=== PATIENT | female | born 1930 | race Caucasian/White ===

== ENCOUNTER → 2016-08-09 | Outpatient (CLI) | payer MEDICARE, OTHER ==
[~2016-08-09] MED LIST: /PANT40TA OR; ABIL2TAB2 PO; ALBUTEROL INHALER INH; AMLO10TA OR; AZEL0.1S3; DIPH25CA PO; FE G325T PO; HALO05TA PO; HYDR-4274 PO; LEVA500T OR; LISI40TA OR; METF500T4 OR; MULTCAP PO; PAXI40TA OR; PHEN1SUP6 PO; POTA20PW PO; RANI300C PO; ROBISYP3 OR; TRIA37.53 PO; VITA100072 PO; XANA0.5T PO
--- NOTE | 2016-08-09 11:50 | REP ---
LEFT KNEE SERIES: Five views of the left knee are performed. There is no acute fracture or dislocation. There is moderate medial joint space narrowing with subchondral sclerosis and vacuum, as well as mild spurring. There is mild patellofemoral compartment narrowing with subchondral sclerosis and spurring. There may be a small joint effusion. IMPRESSION: Moderate degenerative changes. No evidence of acute fracture or dislocation. Signed by Valente Guillaume MD 08/09/2016 12:46 P
== END ==
LOC: M SMT 11:00
PROVIDERS: ATTEND Family Medicine
DX: M17.12 Unilateral primary osteoarthritis, left knee (principal)

== ENCOUNTER → 2016-10-09 | Outpatient (CLI) | payer MEDICARE, OTHER ==
[2016-10-09 08:54] LABS: ANION GAP 6 MEQ/L (8-16); BLOOD UREA NITROGEN 13 MG/DL (7-18); CARBON DIOXIDE LEVEL 32 MEQ/L (21-32); CHLORIDE LEVEL 103 MEQ/L (98-107); CREATININE FOR GFR 0.56 MG/DL (0.55-1.02); GLOMERULAR FILTRATION RATE > 60.0 (>32); GLUCOSE, FASTING 100 MG/DL (83-110); SODIUM LEVEL 141 MEQ/L (136-145)
== END ==
LOC: M LAB 07:28
PROVIDERS: ATTEND Physician Assistant
DX: R60.9 Edema, unspecified (principal); E11.9 Type 2 diabetes mellitus without complications

== ENCOUNTER → 2016-12-14 | Outpatient (REF) | payer MEDICARE, OTHER ==
[~2016-12-14] MED LIST changes: +KLOR20PO12 PO; -POTA20PW PO
== END ==
LOC: M LAB REF 14:45
PROVIDERS: ATTEND Physician Assistant
DX: N39.0 Urinary tract infection, site not specified (principal)

== ENCOUNTER → 2017-01-02 | Outpatient (CLI) | payer MEDICARE, OTHER ==
[2017-01-02 09:13] LABS: ANION GAP 5 MEQ/L (8-16); AST/SGOT 19 U/L (15-37); BLOOD UREA NITROGEN 12 MG/DL (7-18); CALCIUM LEVEL 8.8 MG/DL (8.8-10.2); CARBON DIOXIDE LEVEL 31 MEQ/L (21-32); CHLORIDE LEVEL 105 MEQ/L (98-107); CREATININE FOR GFR 0.55 MG/DL (0.55-1.02); GLOMERULAR FILTRATION RATE > 60.0 (>32); GLUCOSE, FASTING 94 MG/DL (83-110); POTASSIUM SERUM 4.2 MEQ/L (3.5-5.1); SODIUM LEVEL 141 MEQ/L (136-145)
[2017-01-02 09:14] LABS: ALBUMIN 3.7 GM/DL (3.2-5.2); ALBUMIN/GLOBULIN RATIO 1.06 (1.00-1.93); ALKALINE PHOSPHATASE 114 U/L (45-117); ALT/SGPT 23 U/L (12-78); BILIRUBIN,TOTAL 0.3 MG/DL (0.2-1.0); CHOLESTEROL LEVEL 222 MG/DL (<200); TOTAL PROTEIN 7.2 GM/DL (6.4-8.2); TRIGLYCERIDES LEVEL 248 MG/DL (<150)
== END ==
LOC: M LAB 08:02
PROVIDERS: ATTEND Family Medicine
DX: E11.42 Type 2 diabetes mellitus with diabetic polyneuropathy (principal); F33.1 Major depressive disorder, recurrent, moderate

== ENCOUNTER → 2017-04-04 | Outpatient (CLI) | payer MEDICARE, OTHER ==
[~2017-04-04] MED LIST changes: +ABIL1TAB13 PO; -ABIL2TAB2 PO; +HALO0.5H PO; -HALO05TA PO; -HYDR-4274 PO; +HYDR50TA70 PO
[2017-04-04 09:24] LABS: BASO # 0.1 K/mm3 (0.0-0.2); BASO % 1.2 % (0.0-1.0); EOS # 0.2 K/mm3 (0.0-0.50); EOS % 2.9 % (0.0-3.0); LARGE UNSTAINED CELL # 0.3 K/mm3 (0.0-0.4); LARGE UNSTAINED CELL % 4.6 % (0.0-4.0); LYMPH # 2.1 K/mm3 (1.5-4.5); LYMPH % 28.4 % (24.0-44.0); MEAN CORPUSCULAR HEMOGLOBIN 28.2 pg (27.0-33.0); MEAN CORPUSCULAR HGB CONC 32.6 g/dl (32.0-36.5); MEAN CORPUSCULAR VOLUME 86.3 fl (80.0-96.0); MONO # 0.5 K/mm3 (0.0-0.8); MONO % 6.7 % (0.0-5.0); NEUTROPHILS # 4.1 K/mm3 (1.8-7.7); NEUTROPHILS % 56.2 % (36.0-66.0); PLATELET COUNT, AUTOMATED 298 k/mm3 (150-450); RED CELL DISTRIBUTION WIDTH 12.7 % (11.5-14.5); WHITE BLOOD COUNT 7.3 K/mm3 (4.0-10.0)
== END ==
LOC: M LAB 08:14
PROVIDERS: ATTEND Family Medicine
DX: E78.2 Mixed hyperlipidemia (principal); E11.42 Type 2 diabetes mellitus with diabetic polyneuropathy

== ENCOUNTER → 2017-04-30 | Outpatient (REF) | payer MEDICARE, OTHER ==
[2017-04-30 18:46] LABS: CALCIUM OXALATE CRYSTALS SMALL
== END ==
LOC: M LAB REF 16:34
PROVIDERS: ATTEND Nurse Practitioner Women's Health
DX: N39.0 Urinary tract infection, site not specified (principal)

== ENCOUNTER → 2017-07-01 | Outpatient (CLI) | payer MEDICARE, OTHER ==
[2017-07-01 08:53] LABS: ALBUMIN 3.8 GM/DL (3.2-5.2); ALBUMIN/GLOBULIN RATIO 1.06 (1.00-1.93); ALKALINE PHOSPHATASE 109 U/L (45-117); ALT/SGPT 20 U/L (12-78); ANION GAP 8 MEQ/L (8-16); AST/SGOT 14 U/L (7-37); BILIRUBIN,TOTAL 0.3 MG/DL (0.2-1.0); BLOOD UREA NITROGEN 23 MG/DL (7-18); CARBON DIOXIDE LEVEL 29 MEQ/L (21-32); CHLORIDE LEVEL 105 MEQ/L (98-107); CREATININE FOR GFR 0.65 MG/DL (0.55-1.02); FREE T4 0.88 NG/DL (0.76-1.46); GLOMERULAR FILTRATION RATE > 60.0 (>32); GLUCOSE, FASTING 105 MG/DL (83-110); POTASSIUM SERUM 4.1 MEQ/L (3.5-5.1); SODIUM LEVEL 142 MEQ/L (136-145); TOTAL PROTEIN 7.4 GM/DL (6.4-8.2)
== END ==
LOC: M LAB 08:01
PROVIDERS: ATTEND Physician Assistant
DX: E11.42 Type 2 diabetes mellitus with diabetic polyneuropathy (principal); F41.1 Generalized anxiety disorder

== ENCOUNTER → 2017-08-22 | Outpatient (CLI) | payer MEDICARE, OTHER | LOC: M RAD 13:01 | DX: E04.1 Nontoxic single thyroid nodule (principal) | CPT/HCPCS: A9516 ==

== ENCOUNTER → 2018-01-29 | Outpatient (REF) | payer MEDICARE, OTHER ==
[2018-01-29 20:11] LABS: APPEARANCE, URINE CLOUDY (CLEAR); BILIRUBIN, URINE AUTO NEGATIVE (NEGATIVE); BLOOD, URINE BLOOD NEGATIVE (NEGATIVE); COLOR, URINE YELLOW (YELLOW); GLUCOSE, URINE (UA) AUTO NEGATIVE (NEGATIVE); KETONE, URINE AUTO NEGATIVE (NEGATIVE); LEUKOCYTE ESTERASE, URINE AUTO 2+ (NEGATIVE); NITRITE, URINE AUTO NEGATIVE (NEGATIVE); PROTEIN, URINE AUTO NEGATIVE (NEGATIVE); RBC, URINE AUTO 2 /HPF (0-3); SPECIFIC GRAVITY URINE AUTO 1.011 (1.002-1.035); SQUAMOUS EPITHELIAL CELL UR AU 1 /HPF (0-6); TRANSITIONAL EPITHELIAL AUTO <1 /HPF; UROBILINOGEN, URINE AUTO 0.2 mg/dL (0.0-2.0); WBC, URINE AUTO 14 /HPF (0-3)
[2018-01-29 20:12] LABS: BACTERIA, URINE AUTO 2+ (NEGATIVE)
== END ==
LOC: M LAB REF 17:22
DX: N39.0 Urinary tract infection, site not specified (principal)
CPT/HCPCS: 81001

== ENCOUNTER → 2018-02-05 | Outpatient (CLI) | payer MEDICARE, OTHER ==
[2018-02-05 08:35] LABS: ANION GAP 8 MEQ/L (8-16); BLOOD UREA NITROGEN 19 MG/DL (7-18); CALCIUM LEVEL 9.1 MG/DL (8.8-10.2); CARBON DIOXIDE LEVEL 28 MEQ/L (21-32); CHLORIDE LEVEL 106 MEQ/L (98-107); CHOLESTEROL LEVEL 268 MG/DL (<200); CHOLESTEROL RISK RATIO 3.435 (<5); GLOMERULAR FILTRATION RATE > 60.0 (>32); GLUCOSE, FASTING 92 MG/DL (70-100); HDL CHOLESTEROL 78 MG/DL (>40); LDL CHOLESTEROL 144.4 MG/DL (<100); NON-HDL-C 190 MG/DL; POTASSIUM SERUM 4.3 MEQ/L (3.5-5.1); SODIUM LEVEL 142 MEQ/L (136-145); TRIGLYCERIDES LEVEL 228 MG/DL (<150)
[2018-02-05 09:09] LABS: ESTIMATED AVERAGE GLUCOSE 117 MG/DL (60-110); HEMOGLOBIN A1c 5.7 %
== END ==
LOC: M LAB 07:29
DX: E11.42 Type 2 diabetes mellitus with diabetic polyneuropathy (principal); I10 Essential (primary) hypertension
CPT/HCPCS: 83036

== ENCOUNTER → 2018-02-11 | Outpatient (CLI) | payer MEDICARE, OTHER ==
[2018-02-11 12:38] LABS: BASO # 0.1 10^3/uL (0.0-0.2); BASO % 1.3 % (0.0-1.0); EOS # 0.3 10^3/uL (0.0-0.50); EOS % 4.2 % (0.0-3.0); HEMATOCRIT 39.3 % (36.0-47.0); HEMOGLOBIN 12.4 g/dl (12.0-15.5); IMMATURE GRANULOCYTE % 0.5 % (0-3.0); LYMPH # 2.4 10^3/uL (1.5-4.5); LYMPH % 30.7 % (24.0-44.0); MEAN CORPUSCULAR HEMOGLOBIN 28.2 pg (27.0-33.0); MEAN CORPUSCULAR HGB CONC 31.6 g/dl (32.0-36.5); MEAN CORPUSCULAR VOLUME 89.3 fl (80.0-96.0); MONO # 0.8 10^3/uL (0.0-0.8); MONO % 10.4 % (0.0-5.0); NEUTROPHILS # 4.1 10^3/uL (1.8-7.7); NEUTROPHILS % 52.9 % (36.0-66.0); PLATELET COUNT, AUTOMATED 266 10^3/uL (150-450); RED CELL DISTRIBUTION WIDTH 13.1 % (11.5-14.5); WHITE BLOOD COUNT 7.7 10^3/uL (4.0-10.0)
== END ==
LOC: M LAB 12:00
DX: R21 Rash and other nonspecific skin eruption (principal)
CPT/HCPCS: 85025

== ENCOUNTER → 2018-03-13 | Outpatient (REF) | payer MEDICARE, OTHER ==
[2018-03-13 17:19] LABS: APPEARANCE, URINE CLOUDY (CLEAR); BACTERIA, URINE AUTO 1+ (NEGATIVE); BILIRUBIN, URINE AUTO NEGATIVE (NEGATIVE); BLOOD, URINE BLOOD NEGATIVE (NEGATIVE); CALCIUM OXALATE CRYSTALS MODERATE; COLOR, URINE YELLOW (YELLOW); GLUCOSE, URINE (UA) AUTO NEGATIVE (NEGATIVE); KETONE, URINE AUTO NEGATIVE (NEGATIVE); LEUKOCYTE ESTERASE, URINE AUTO 1+ (NEGATIVE); NITRITE, URINE AUTO NEGATIVE (NEGATIVE); PROTEIN, URINE AUTO NEGATIVE (NEGATIVE); RBC, URINE AUTO 1 /HPF (0-3); SPECIFIC GRAVITY URINE AUTO 1.011 (1.002-1.035); SQUAMOUS EPITHELIAL CELL UR AU 7 /HPF (0-6); UROBILINOGEN, URINE AUTO 0.2 mg/dL (0.0-2.0); WBC, URINE AUTO 9 /HPF (0-3)
== END ==
LOC: M LAB REF 16:55
DX: R33.9 Retention of urine, unspecified (principal)
CPT/HCPCS: 81001

== ENCOUNTER 2018-04-29 10:10 | Day surgery (SDC) | payer MEDICARE, OTHER ==
[2018-04-29] MEDS: NS 1,000 ML IV (06:00)
[2018-04-29] MEDS ORDERED: LABETALOL HCL 100 MG/20 ML VIAL As Ordered (12:27)
[2018-04-29] MEDS ORDERED: PROPOFOL 200 MG/20 ML VIAL As Ordered ×2 (12:28→12:30)
[2018-04-29] MEDS ORDERED: LIDOCAINE 2% INJ 100 MG/5 ML SDV (FOR ANES.) As Ordered (12:28)
== END 2018-04-29 14:08 | disposition home or self-care (01) ==
LOC: M OPP 10:10
DX: R19.4 Change in bowel habit (principal); K59.00 Constipation, unspecified; K57.30 Diverticulosis of large intestine without perforation or abscess without bleeding; R93.3 Abnormal findings on diagnostic imaging of other parts of digestive tract; R13.12 Dysphagia, oropharyngeal phase; R07.89 Other chest pain; I10 Essential (primary) hypertension; E11.9 Type 2 diabetes mellitus without complications; K58.9 Irritable bowel syndrome, unspecified; K21.9 Gastro-esophageal reflux disease without esophagitis; R12 Heartburn; D64.9 Anemia, unspecified; R06.02 Shortness of breath; M19.90 Unspecified osteoarthritis, unspecified site; F41.9 Anxiety disorder, unspecified; Z78.0 Asymptomatic menopausal state; J45.909 Unspecified asthma, uncomplicated; G47.8 Other sleep disorders; R06.83 Snoring; Z88.1 Allergy status to other antibiotic agents; Z88.8 Allergy status to other drugs, medicaments and biological substances; Z79.82 Long term (current) use of aspirin; Z79.899 Other long term (current) drug therapy; Z79.84 Long term (current) use of oral hypoglycemic drugs; Z80.3 Family history of malignant neoplasm of breast; Z80.0 Family history of malignant neoplasm of digestive organs
CPT/HCPCS: 45378

== ENCOUNTER → 2018-05-01 | Outpatient (CLI) | payer MEDICARE, OTHER ==
[2018-05-01 17:22] LABS: BASO # 0.1 10^3/uL (0.0-0.2); BASO % 1.2 % (0.0-1.0); EOS # 0.3 10^3/uL (0.0-0.50); EOS % 3.3 % (0.0-3.0); HEMOGLOBIN 13.3 g/dl (12.0-15.5); IMMATURE GRANULOCYTE % 0.2 % (0-3.0); LYMPH % 33.1 % (24.0-44.0); MEAN CORPUSCULAR HEMOGLOBIN 27.7 pg (27.0-33.0); MEAN CORPUSCULAR HGB CONC 31.7 g/dl (32.0-36.5); MEAN CORPUSCULAR VOLUME 87.5 fl (80.0-96.0); MONO # 0.8 10^3/uL (0.0-0.8); NEUTROPHILS # 4.8 10^3/uL (1.8-7.7); NEUTROPHILS % 53.2 % (36.0-66.0); PLATELET COUNT, AUTOMATED 290 10^3/uL (150-450); RED CELL DISTRIBUTION WIDTH 13.2 % (11.5-14.5)
[2018-05-01 17:41] LABS: ALBUMIN 3.7 GM/DL (3.2-5.2); ALBUMIN/GLOBULIN RATIO 1.03 (1.00-1.93); ALKALINE PHOSPHATASE 123 U/L (45-117); ALT/SGPT 26 U/L (12-78); ANION GAP 6 MEQ/L (8-16); AST/SGOT 22 U/L (7-37); BILIRUBIN,TOTAL 0.2 MG/DL (0.2-1.0); BLOOD UREA NITROGEN 12 MG/DL (7-18); C REACTIVE PROTEIN QUANTITATIV 0.52 MG/DL (0.00-0.30); CALCIUM LEVEL 8.7 MG/DL (8.8-10.2); CARBON DIOXIDE LEVEL 31 MEQ/L (21-32); CHLORIDE LEVEL 106 MEQ/L (98-107); FREE T4 0.93 NG/DL (0.76-1.46); GLOMERULAR FILTRATION RATE > 60.0 (>32); GLUCOSE, FASTING 89 MG/DL (70-100); MAGNESIUM LEVEL 1.9 MG/DL (1.8-2.4); POTASSIUM SERUM 4.4 MEQ/L (3.5-5.1); SODIUM LEVEL 143 MEQ/L (136-145); THYROID STIMULATING HORMONE 0.629 uIU/ML (0.358-3.740); TOTAL PROTEIN 7.3 GM/DL (6.4-8.2)
[2018-05-01 17:57] LABS: ERYTHROCYTE SEDIMENTATION RATE 8 mm/hr (0-42)
[2018-05-01 20:24] LABS: FOLATE 23.7 NG/ML
== END ==
LOC: M SMT 14:37
DX: G44.52 New daily persistent headache (NDPH) (principal); I10 Essential (primary) hypertension; E11.9 Type 2 diabetes mellitus without complications; D64.9 Anemia, unspecified; E78.00 Pure hypercholesterolemia, unspecified; K21.9 Gastro-esophageal reflux disease without esophagitis
CPT/HCPCS: 82746

== ENCOUNTER → 2018-05-16 | Outpatient (CLI) | payer MEDICARE, OTHER ==
[2018-05-16 10:11] LABS: ALBUMIN 3.8 GM/DL (3.2-5.2); ALBUMIN/GLOBULIN RATIO 1.19 (1.00-1.93); ALKALINE PHOSPHATASE 113 U/L (45-117); ALT/SGPT 17 U/L (12-78); ANION GAP 4 MEQ/L (8-16); AST/SGOT 12 U/L (7-37); BILIRUBIN,TOTAL 0.4 MG/DL (0.2-1.0); BLOOD UREA NITROGEN 15 MG/DL (7-18); CALCIUM LEVEL 9.5 MG/DL (8.8-10.2); CARBON DIOXIDE LEVEL 32 MEQ/L (21-32); CHLORIDE LEVEL 104 MEQ/L (98-107); CHOLESTEROL LEVEL 266 MG/DL (<200); CHOLESTEROL RISK RATIO 3.694 (<5); FREE T4 0.86 NG/DL (0.76-1.46); GLOMERULAR FILTRATION RATE > 60.0 (>32); GLUCOSE, FASTING 85 MG/DL (70-100); HDL CHOLESTEROL 72 MG/DL (>40); LDL CHOLESTEROL 165 MG/DL (<100); NON-HDL-C 194 MG/DL; POTASSIUM SERUM 5.1 MEQ/L (3.5-5.1); SODIUM LEVEL 140 MEQ/L (136-145); TRIGLYCERIDES LEVEL 145 MG/DL (<150)
[2018-05-16 11:32] LABS: ESTIMATED AVERAGE GLUCOSE 126 MG/DL (60-110)
== END ==
LOC: M LAB 07:35
DX: I10 Essential (primary) hypertension (principal); E11.42 Type 2 diabetes mellitus with diabetic polyneuropathy; F41.1 Generalized anxiety disorder
CPT/HCPCS: 84443

== ENCOUNTER → 2018-06-24 | Outpatient (REF) | payer MEDICARE, OTHER ==
[2018-06-24 18:47] LABS: APPEARANCE, URINE CLOUDY (CLEAR); BACTERIA, URINE AUTO 3+ (NEGATIVE); BILIRUBIN, URINE AUTO NEGATIVE (NEGATIVE); BLOOD, URINE BLOOD 1+ (NEGATIVE); COLOR, URINE YELLOW (YELLOW); GLUCOSE, URINE (UA) AUTO NEGATIVE (NEGATIVE); KETONE, URINE AUTO NEGATIVE (NEGATIVE); LEUKOCYTE ESTERASE, URINE AUTO 3+ (NEGATIVE); NITRITE, URINE AUTO POSITIVE (NEGATIVE); PROTEIN, URINE AUTO NEGATIVE (NEGATIVE); RBC, URINE AUTO 13 /HPF (0-3); SPECIFIC GRAVITY URINE AUTO 1.005 (1.002-1.035); SQUAMOUS EPITHELIAL CELL UR AU 8 /HPF (0-6); UROBILINOGEN, URINE AUTO 0.2 mg/dL (0.0-2.0); WBC, URINE AUTO 140 /HPF (0-3)
== END ==
LOC: M LAB REF 16:27
DX: N39.0 Urinary tract infection, site not specified (principal)
CPT/HCPCS: 81001

== ENCOUNTER → 2018-07-31 | Outpatient (REF) | payer MEDICARE, OTHER ==
[~2018-07-31] MED LIST changes: +AMLO5TAB6 PO; +ASPI1TAB PO; +CBD oil PO; +DOXE10CA PO; +GABA-845 PO; +HYDR-3363 PO; +LINZ145C PO; +LORA-243 PO; +LORA1TAB12 PO; +LOSA25TA14 PO; +METF500T13 PO; +MILK120011 PO; +OXYC-517 PO; +PARO40TA2 PO; +VITA500T PO; +medical marijuana PO
== END ==
LOC: M LAB REF 15:06
PROVIDERS: ATTEND Nurse Practitioner Family
DX: L08.9 Local infection of the skin and subcutaneous tissue, unspecified (principal)

== ENCOUNTER → 2018-09-04 | Outpatient (CLI) | payer MEDICARE, OTHER ==
[2018-09-04 09:01] LABS: BASO # 0.1 10^3/uL (0.0-0.2); EOS # 0.3 10^3/uL (0.0-0.50); EOS % 2.5 % (0.0-3.0); HEMATOCRIT 43.2 % (36.0-47.0); HEMOGLOBIN 13.7 g/dl (12.0-15.5); LYMPH % 17.9 % (24.0-44.0); MEAN CORPUSCULAR HEMOGLOBIN 27.2 pg (27.0-33.0); MEAN CORPUSCULAR HGB CONC 31.7 g/dl (32.0-36.5); MEAN CORPUSCULAR VOLUME 85.7 fl (80.0-96.0); MONO # 0.7 10^3/uL (0.0-0.8); MONO % 6.1 % (0.0-5.0); NEUTROPHILS # 7.9 10^3/uL (1.8-7.7); PLATELET COUNT, AUTOMATED 355 10^3/uL (150-450); RED BLOOD COUNT 5.04 10^6/uL (4.00-5.40); WHITE BLOOD COUNT 10.9 10^3/uL (4.0-10.0)
[2018-09-04 09:12] LABS: ALT/SGPT 24 U/L (12-78); BILIRUBIN,TOTAL 0.3 MG/DL (0.2-1.0); BLOOD UREA NITROGEN 13 MG/DL (7-18); CALCIUM LEVEL 9.3 MG/DL (8.8-10.2); CARBON DIOXIDE LEVEL 30 MEQ/L (21-32); CHLORIDE LEVEL 105 MEQ/L (98-107); CHOLESTEROL LEVEL 213 MG/DL (<200); CREATININE FOR GFR 0.58 MG/DL (0.55-1.30); GLOMERULAR FILTRATION RATE > 60.0 (>32); GLUCOSE, FASTING 115 MG/DL (70-100); HDL CHOLESTEROL 91 MG/DL (>40); LDL CHOLESTEROL 94 MG/DL (<100); NON-HDL-C 122 MG/DL; SODIUM LEVEL 141 MEQ/L (136-145); TOTAL PROTEIN 7.4 GM/DL (6.4-8.2); TRIGLYCERIDES LEVEL 138 MG/DL (<150)
[2018-09-04 10:45] LABS: HEMOGLOBIN A1c 6.5 %
== END ==
LOC: M LAB 08:16
PROVIDERS: ATTEND Family Medicine
DX: E78.2 Mixed hyperlipidemia (principal); E11.42 Type 2 diabetes mellitus with diabetic polyneuropathy; I10 Essential (primary) hypertension

== ENCOUNTER → 2018-09-18 | Outpatient (REF) | payer MEDICARE, OTHER ==
[~2018-09-18] MED LIST changes: -/PANT40TA OR; -ASPI1TAB PO; +ASPI81TA26 PO; +PROT1TAB2 OR; +VITA100018 PO; -VITA100072 PO
== END ==
LOC: M SFHCPLAZ 09:51
PROVIDERS: ATTEND Dermatology
DX: L57.8 Other skin changes due to chronic exposure to nonionizing radiation (principal)

== ENCOUNTER → 2018-10-09 | Outpatient (REF) | payer MEDICARE, OTHER ==
[~2018-10-09] MED LIST changes: +/PANT40TA OR; +ASPI1TAB PO; -ASPI81TA26 PO; -PROT1TAB2 OR; -VITA100018 PO; +VITA100072 PO
== END ==
LOC: M LAB REF 17:02
PROVIDERS: ATTEND Physician Assistant
DX: N39.0 Urinary tract infection, site not specified (principal)

== ENCOUNTER → 2019-02-04 | Outpatient (REF) | payer MEDICARE, OTHER ==
[~2019-02-04] MED LIST changes: -/PANT40TA OR; -ASPI1TAB PO; +ASPI81TA26 PO; +PROT1TAB2 OR; +VITA100018 PO; -VITA100072 PO
[2019-02-04 19:01] LABS: APPEARANCE, URINE HAZY (CLEAR); BACTERIA, URINE AUTO 2+ (NEGATIVE); BILIRUBIN, URINE AUTO NEGATIVE (NEGATIVE); BLOOD, URINE BLOOD NEGATIVE (NEGATIVE); COLOR, URINE YELLOW (YELLOW); GLUCOSE, URINE (UA) AUTO NEGATIVE (NEGATIVE); KETONE, URINE AUTO NEGATIVE (NEGATIVE); LEUKOCYTE ESTERASE, URINE AUTO 3+ (NEGATIVE); NITRITE, URINE AUTO POSITIVE (NEGATIVE); PROTEIN, URINE AUTO NEGATIVE (NEGATIVE); RBC, URINE AUTO 3 /HPF (0-3); SQUAMOUS EPITHELIAL CELL UR AU 1 /HPF (0-6); UROBILINOGEN, URINE AUTO 0.2 mg/dL (0.0-2.0); WBC, URINE AUTO 58 /HPF (0-3)
== END ==
LOC: M LAB REF 16:40
PROVIDERS: ATTEND Obstetrics & Gynecology
DX: N39.0 Urinary tract infection, site not specified (principal)

== ENCOUNTER → 2019-03-11 | Outpatient (CLI) | payer MEDICARE, OTHER ==
[~2019-03-11] MED LIST changes: -DIPH25CA PO; +DIPH25CA32 PO
[2019-03-11 08:11] LABS: BASO # 0.1 10^3/uL (0.0-0.2); BASO % 1.2 % (0.0-1.0); EOS # 0.3 10^3/uL (0.0-0.50); EOS % 3.4 % (0.0-3.0); HEMOGLOBIN 13.7 g/dl (12.0-15.5); LYMPH # 2.4 10^3/uL (1.5-4.5); LYMPH % 29.2 % (24.0-44.0); MEAN CORPUSCULAR HGB CONC 31.9 g/dl (32.0-36.5); MEAN CORPUSCULAR VOLUME 87.8 fl (80.0-96.0); MONO # 0.7 10^3/uL (0.0-0.8); MONO % 8.3 % (0.0-5.0); NEUTROPHILS # 4.7 10^3/uL (1.8-7.7); NEUTROPHILS % 57.5 % (36.0-66.0); PLATELET COUNT, AUTOMATED 287 10^3/uL (150-450); WHITE BLOOD COUNT 8.2 10^3/uL (4.0-10.0)
[2019-03-11 08:37] LABS: HEMOGLOBIN A1c 6.3 %
[2019-03-11 08:42] LABS: ALBUMIN 3.7 GM/DL (3.2-5.2); ALT/SGPT 23 U/L (12-78); BILIRUBIN,TOTAL 0.2 MG/DL (0.2-1.0); BLOOD UREA NITROGEN 11 MG/DL (7-18); CALCIUM LEVEL 9.6 MG/DL (8.8-10.2); CARBON DIOXIDE LEVEL 30 MEQ/L (21-32); CHLORIDE LEVEL 106 MEQ/L (98-107); CHOLESTEROL LEVEL 238 MG/DL (<200); CHOLESTEROL RISK RATIO 3.131 (<5); CREATININE FOR GFR 0.53 MG/DL (0.55-1.30); GLOMERULAR FILTRATION RATE > 60.0 (>32); GLUCOSE, FASTING 103 MG/DL (70-100); HDL CHOLESTEROL 76 MG/DL (>40); LDL CHOLESTEROL 121 MG/DL (<100); NON-HDL-C 162 MG/DL; POTASSIUM SERUM 4.1 MEQ/L (3.5-5.1); SODIUM LEVEL 142 MEQ/L (136-145); TOTAL PROTEIN 7.1 GM/DL (6.4-8.2); TRIGLYCERIDES LEVEL 205 MG/DL (<150)
[2019-03-11 08:50] LABS: CREATININE, URINE 63.8 MG/DL; MALB URINE SIEMENS 37.1 MG/L; MAU/CREAT RATIO 58.1 MCG/MG (0.0-30.0)
== END ==
LOC: M LAB 07:40
PROVIDERS: ATTEND Family Medicine
DX: E11.42 Type 2 diabetes mellitus with diabetic polyneuropathy (principal); E78.2 Mixed hyperlipidemia; I10 Essential (primary) hypertension

== ENCOUNTER 2019-03-28 08:03 | Emergency (ER) | payer MEDICARE, OTHER ==
[~2019-03-28] VITALS: Ht 165.1 cm; Wt 79.5 kg
[~2019-03-28 08:03] MED LIST changes: -LORA1TAB12 PO; +LORA1TAB4 PO
[2019-03-28] MEDS ORDERED: PRAV20TA2 PO (08:26)
[2019-03-28] MEDS ORDERED: HYDR-3363 PO (08:26)
[2019-03-28] MEDS ORDERED: XANA1TAB2 PO (08:26)
[2019-03-28 09:33] LABS: BASO # 0.1 10^3/uL (0.0-0.2); EOS # 0.2 10^3/uL (0.0-0.5); EOS % 2.5 % (0.0-3.0); HEMATOCRIT 44.7 % (36.0-47.0); HEMOGLOBIN 14.1 g/dl (12.0-15.5); LYMPH % 22.4 % (24.0-44.0); MEAN CORPUSCULAR HEMOGLOBIN 27.8 pg (27.0-33.0); MEAN CORPUSCULAR HGB CONC 31.5 g/dl (32.0-36.5); MEAN CORPUSCULAR VOLUME 88.2 fl (80.0-96.0); MONO # 0.7 10^3/uL (0.0-0.8); MONO % 8.1 % (0.0-5.0); NEUTROPHILS # 5.9 10^3/uL (1.5-8.5); NEUTROPHILS % 65.4 % (36.0-66.0); PLATELET COUNT, AUTOMATED 257 10^3/uL (150-450); RED BLOOD COUNT 5.07 10^6/uL (4.00-5.40); WHITE BLOOD COUNT 9.1 10^3/uL (4.0-10.0)
[2019-03-28 09:42] LABS: ALBUMIN 3.8 GM/DL (3.2-5.2); ALT/SGPT 32 U/L (12-78); BILIRUBIN,DIRECT < 0.1 MG/DL (0.0-0.2); BILIRUBIN,TOTAL 0.3 MG/DL (0.2-1.0); BLOOD UREA NITROGEN 15 MG/DL (7-18); CALCIUM LEVEL 9.7 MG/DL (8.8-10.2); CARBON DIOXIDE LEVEL 25 MEQ/L (21-32); CHLORIDE LEVEL 107 MEQ/L (98-107); CPK CREATINE PHOSPHOKINASE 85 U/L (26-192); CREATININE FOR GFR 0.65 MG/DL (0.55-1.30); GLOMERULAR FILTRATION RATE > 60.0 (>32); GLUCOSE, FASTING 107 MG/DL (70-100); LIPASE 79 U/L (73-393); MB/CK RELATIVE INDEX 2.35 (< OR =4); SODIUM LEVEL 141 MEQ/L (136-145); TOTAL PROTEIN 7.4 GM/DL (6.4-8.2); TROPONIN I < 0.02 NG/ML (< 0.10)
[2019-03-28] MEDS ORDERED: ISOVUE-370 76% 100ML VIAL (Q9967) As Ordered ONE (10:30)
[2019-03-28 10:34] LABS: INFLUENZA A AMPLIFICATION NEGATIVE (NEGATIVE); INFLUENZA B AMPLIFICATION NEGATIVE (NEGATIVE)
--- NOTE | 2019-03-28 10:39 | REP ---
REASON: Dyspnea. COMPARISON: Multiple, latest 04/21/2016. The technique utilized in obtaining the radiograph has magnified the cardiac silhouette and accentuated the interstitial markings. There is cardiomegaly accentuated by technique, status quo. There is no change in the lung lopez. No acute patchy parenchymal opacities or pleural effusions have developed. There is mild basilar fibrotic change, status quo. There is no change in the osseous structures. IMPRESSION: Stable exam with findings as described above. There is no evidence of acute cardiopulmonary disease. Electronically Signed by Jose A Richter DO 03/28/2019 11:24 A
[2019-03-28] MEDS ORDERED: ACETAMINOPHEN TAB 650MG DOSE (2X325MG) PO ONE (12:00)
--- NOTE | 2019-03-28 12:21 | REP ---
REASON FOR EXAM: Abdominal pain. 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 Patient had a nonobstructing tiny right nephrolith in the inferior pole of the right kidney. CONTRAST TODAY: 100 mL [id number]. There is no change in the lung bases. Fibrotic changes, status quo. There are no pleural or pericardial effusions. The liver, spleen, pancreas, adrenal glands, and left kidney are unchanged. The mild right-sided hydronephrosis seen on the prior exam has abated. Persistent bilateral extrarenal pelvis noted, status quo. The small nonobstructing right nephrolith is also unchanged. The abdominal aorta and para-aortic regions are unchanged. The bowel loops and their mesenteries are again seen to be within normal limits. No free fluid or free air is seen in the abdomen or pelvis. There is no evidence of an intra-abdominal or intrapelvic mass or adenopathy. There is no significant change in appearance of the osseous structures. IMPRESSION: 1. 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 The tiny nonobstructing right nephrolith is unchanged. 2. No evidence of acute intra-abdominal or intrapelvic disease. No significant change in appearance of the bowel loops. No definite evidence of acute diverticulitis. There is rather stable-appearing colonic diverticulosis. Electronically Signed by Jose A Richter DO 03/28/2019 12:27 P
[2019-03-28 12:34] VITALS: BP 187/56
== END 2019-03-28 13:22 | disposition home or self-care (01) ==
LOC: M ED 08:03 → EDBD 08:03 → M ED 13:22
DX: M79.10 Myalgia, unspecified site (principal); R10.9 Unspecified abdominal pain; R05 Cough; E11.9 Type 2 diabetes mellitus without complications; I10 Essential (primary) hypertension; E78.5 Hyperlipidemia, unspecified; F41.9 Anxiety disorder, unspecified; F32.9 Major depressive disorder, single episode, unspecified; R13.10 Dysphagia, unspecified; K57.90 Diverticulosis of intestine, part unspecified, without perforation or abscess without bleeding; D64.9 Anemia, unspecified; Z86.19 Personal history of other infectious and parasitic diseases; Z90.49 Acquired absence of other specified parts of digestive tract; Z88.2 Allergy status to sulfonamides; Z88.1 Allergy status to other antibiotic agents; Z88.8 Allergy status to other drugs, medicaments and biological substances; Z79.899 Other long term (current) drug therapy; Z79.84 Long term (current) use of oral hypoglycemic drugs; Z79.82 Long term (current) use of aspirin
CPT/HCPCS: 71045; 74177; 80048; 80076; 82550; 82553; 83690; 84484; 85025; 87502; 93041; 94760; 99285; Q9967

== ENCOUNTER → 2019-04-02 | Outpatient (REF) | payer MEDICARE, OTHER ==
[~2019-04-02] MED LIST changes: +LORA1TAB12 PO; -LORA1TAB4 PO; +PRAV20TA2 PO; +XANA1TAB2 PO
== END ==
LOC: M LAB REF 17:57
PROVIDERS: ATTEND Physician Assistant
DX: N39.0 Urinary tract infection, site not specified (principal)

== ENCOUNTER → 2019-05-08 | Outpatient (CLI) | payer MEDICARE, OTHER ==
[2019-05-08 12:43] LABS: BLOOD UREA NITROGEN 15 MG/DL (7-18); CALCIUM LEVEL 10.4 MG/DL (8.8-10.2); CARBON DIOXIDE LEVEL 30 MEQ/L (21-32); CHLORIDE LEVEL 106 MEQ/L (98-107); GLOMERULAR FILTRATION RATE > 60.0 (>32); GLUCOSE, FASTING 101 MG/DL (70-100); POTASSIUM SERUM 4.6 MEQ/L (3.5-5.1); SODIUM LEVEL 141 MEQ/L (136-145)
== END ==
LOC: M LAB 11:23
DX: R13.10 Dysphagia, unspecified (principal); H92.09 Otalgia, unspecified ear; R22.1 Localized swelling, mass and lump, neck

== ENCOUNTER → 2019-05-14 | Outpatient (REF) | payer MEDICARE, OTHER ==
[2019-05-14 17:48] LABS: AMORPHOUS SEDIMENT MODERATE (NEGATIVE); APPEARANCE, URINE CLOUDY (CLEAR); BACTERIA, URINE AUTO 3+ (NEGATIVE); BILIRUBIN, URINE AUTO NEGATIVE (NEGATIVE); BLOOD, URINE BLOOD NEGATIVE (NEGATIVE); COLOR, URINE YELLOW (YELLOW); GLUCOSE, URINE (UA) AUTO NEGATIVE (NEGATIVE); KETONE, URINE AUTO NEGATIVE (NEGATIVE); LEUKOCYTE ESTERASE, URINE AUTO 2+ (NEGATIVE); MUCUS, URINE SMALL (NEGATIVE); NITRITE, URINE AUTO POSITIVE (NEGATIVE); PROTEIN, URINE AUTO NEGATIVE (NEGATIVE); RBC, URINE AUTO 6 /HPF (0-3); SPECIFIC GRAVITY URINE AUTO 1.014 (1.002-1.035); SQUAMOUS EPITHELIAL CELL UR AU 1 /HPF (0-6); TRANSITIONAL EPITHELIAL AUTO 1 /HPF; UROBILINOGEN, URINE AUTO 0.2 mg/dL (0.0-2.0); WBC, URINE AUTO 43 /HPF (0-3)
== END ==
LOC: M LAB REF 16:55
PROVIDERS: ATTEND Physician Assistant
DX: R30.0 Dysuria (principal)

== ENCOUNTER → 2019-06-03 | Outpatient (CLI) | payer MEDICARE, OTHER ==
[2019-06-03 08:12] LABS: BASO # 0.1 10^3/uL (0.0-0.2); BASO % 1.1 % (0.0-1.0); EOS # 0.3 10^3/uL (0.0-0.5); EOS % 3.3 % (0.0-3.0); HEMATOCRIT 42.9 % (36.0-47.0); HEMOGLOBIN 13.3 g/dl (12.0-15.5); LYMPH # 2.4 10^3/uL (1.5-5.0); MEAN CORPUSCULAR HEMOGLOBIN 27.5 pg (27.0-33.0); MEAN CORPUSCULAR VOLUME 88.8 fl (80.0-96.0); MONO # 0.7 10^3/uL (0.0-0.8); PLATELET COUNT, AUTOMATED 284 10^3/uL (150-450); RED BLOOD COUNT 4.83 10^6/uL (4.00-5.40); WHITE BLOOD COUNT 8.5 10^3/uL (4.0-10.0)
[2019-06-03 08:41] LABS: ALBUMIN 3.7 GM/DL (3.2-5.2); ALT/SGPT 33 U/L (12-78); BILIRUBIN,TOTAL 0.4 MG/DL (0.2-1.0); BLOOD UREA NITROGEN 11 MG/DL (7-18); CALCIUM LEVEL 9.6 MG/DL (8.8-10.2); CARBON DIOXIDE LEVEL 31 MEQ/L (21-32); CHLORIDE LEVEL 106 MEQ/L (98-107); CHOLESTEROL LEVEL 210 MG/DL (<200); GLOMERULAR FILTRATION RATE > 60.0 (>32); GLUCOSE, FASTING 96 MG/DL (70-100); HDL CHOLESTEROL 85 MG/DL (>40); LDL CHOLESTEROL 96 MG/DL (<100); NON-HDL-C 125 MG/DL; POTASSIUM SERUM 4.2 MEQ/L (3.5-5.1); SODIUM LEVEL 142 MEQ/L (136-145); TOTAL PROTEIN 7.2 GM/DL (6.4-8.2); TRIGLYCERIDES LEVEL 147 MG/DL (<150)
[2019-06-03 10:14] LABS: HEMOGLOBIN A1c 6.3 %
== END ==
LOC: M LAB 07:24
PROVIDERS: ATTEND Family Medicine
DX: E11.9 Type 2 diabetes mellitus without complications (principal)

== ENCOUNTER → 2019-06-16 | Outpatient (REF) | payer MEDICARE, OTHER ==
[2019-06-16 18:00] LABS: APPEARANCE, URINE CLOUDY (CLEAR); BACTERIA, URINE AUTO 1+ (NEGATIVE); BILIRUBIN, URINE AUTO NEGATIVE (NEGATIVE); BLOOD, URINE BLOOD 1+ (NEGATIVE); COLOR, URINE YELLOW (YELLOW); GLUCOSE, URINE (UA) AUTO NEGATIVE (NEGATIVE); KETONE, URINE AUTO NEGATIVE (NEGATIVE); LEUKOCYTE ESTERASE, URINE AUTO 2+ (NEGATIVE); MUCUS, URINE SMALL (NEGATIVE); NITRITE, URINE AUTO NEGATIVE (NEGATIVE); PROTEIN, URINE AUTO NEGATIVE (NEGATIVE); RBC, URINE AUTO 16 /HPF (0-3); SPECIFIC GRAVITY URINE AUTO 1.012 (1.002-1.035); SQUAMOUS EPITHELIAL CELL UR AU 1 /HPF (0-6); UROBILINOGEN, URINE AUTO 0.2 mg/dL (0.0-2.0); WBC, URINE AUTO 15 /HPF (0-3)
== END ==
LOC: M LAB REF 16:58
PROVIDERS: ATTEND Physician Assistant
DX: R30.0 Dysuria (principal)

== ENCOUNTER → 2019-07-28 | Outpatient (REF) | payer MEDICARE, OTHER ==
[~2019-07-28] MED LIST changes: -LORA1TAB12 PO; +LORA1TAB4 PO
[2019-07-28 18:31] LABS: APPEARANCE, URINE CLOUDY (CLEAR); BACTERIA, URINE AUTO 1+ (NEGATIVE); BILIRUBIN, URINE AUTO NEGATIVE (NEGATIVE); BLOOD, URINE BLOOD NEGATIVE (NEGATIVE); CALCIUM OXALATE CRYSTALS SMALL; COLOR, URINE YELLOW (YELLOW); GLUCOSE, URINE (UA) AUTO NEGATIVE (NEGATIVE); KETONE, URINE AUTO NEGATIVE (NEGATIVE); LEUKOCYTE ESTERASE, URINE AUTO 2+ (NEGATIVE); MUCUS, URINE SMALL (NEGATIVE); NITRITE, URINE AUTO POSITIVE (NEGATIVE); PROTEIN, URINE AUTO NEGATIVE (NEGATIVE); RBC, URINE AUTO 2 /HPF (0-3); SPECIFIC GRAVITY URINE AUTO 1.014 (1.002-1.035); SQUAMOUS EPITHELIAL CELL UR AU 1 /HPF (0-6); UROBILINOGEN, URINE AUTO 0.2 mg/dL (0.0-2.0); WBC, URINE AUTO 23 /HPF (0-3)
== END ==
LOC: M LAB REF 16:54
PROVIDERS: ATTEND Physician Assistant
DX: R30.0 Dysuria (principal)

== ENCOUNTER → 2019-08-11 | Outpatient (REF) | payer MEDICARE, OTHER | LOC: M LAB REF 17:31 | PROVIDERS: ATTEND Physician Assistant | DX: R30.0 Dysuria (principal) ==

== ENCOUNTER → 2019-09-08 | Outpatient (REF) | payer MEDICARE, OTHER | LOC: M LAB REF 16:54 | PROVIDERS: ATTEND Physician Assistant | DX: R30.0 Dysuria (principal) ==

== ENCOUNTER → 2019-11-25 | Outpatient (CLI) | payer MEDICARE, OTHER ==
[~2019-11-25] MED LIST changes: +VITA-243 PO; -VITA500T PO
[2019-11-25 07:29] LABS: BASO # 0.1 10^3/uL (0.0-0.2); BASO % 1.2 % (0.0-1.0); EOS # 0.3 10^3/uL (0.0-0.5); EOS % 3.5 % (0.0-3.0); HEMATOCRIT 41.7 % (36.0-47.0); HEMOGLOBIN 13.1 g/dl (12.0-15.5); LYMPH # 2.4 10^3/uL (1.5-5.0); LYMPH % 29.1 % (24.0-44.0); MEAN CORPUSCULAR HEMOGLOBIN 27.7 pg (27.0-33.0); MEAN CORPUSCULAR HGB CONC 31.4 g/dl (32.0-36.5); MEAN CORPUSCULAR VOLUME 88.2 fl (80.0-96.0); MONO # 0.8 10^3/uL (0.0-0.8); MONO % 9.5 % (0.0-5.0); NEUTROPHILS # 4.6 10^3/uL (1.5-8.5); NEUTROPHILS % 56.5 % (36.0-66.0); PLATELET COUNT, AUTOMATED 261 10^3/uL (150-450); RED BLOOD COUNT 4.73 10^6/uL (4.00-5.40); WHITE BLOOD COUNT 8.1 10^3/uL (4.0-10.0)
[2019-11-25 07:46] LABS: IMMUNOGLOBULIN E 71.5 IU/ML (<100); TOTAL PROTEIN 7.2 GM/DL (6.4-8.2)
[2019-11-26 11:30] LABS: ALBUMIN % 59.4 % (55.8-66.1); ALPHA-1-GLOBULIN % 4.1 % (2.9-4.9)
[2019-11-26 11:31] LABS: ALBUMIN 4.28 GM/DL (3.29-5.55); ALPHA-2-GLOBULINS 0.79 GM/DL (0.42-0.99); BETA-1-GLOBULINS 0.45 GM/DL (0.28-0.60); BETA-1-GLOBULINS % 6.3 % (4.7-7.2); BETA-2-GLOBULINS 0.45 GM/DL (0.19-0.55); BETA-2-GLOBULINS % 6.3 % (3.2-6.5); GAMMA GLOBULIN % 12.9 % (11.1-18.8); GAMMA GLOBULINS 0.93 GM/DL (0.65-1.58)
[2019-11-28 00:06] LABS: ANA (HEP2) Positive (.)
== END ==
LOC: M LAB 06:46
PROVIDERS: ATTEND Allergy & Immunology
DX: L29.9 Pruritus, unspecified (principal); L30.9 Dermatitis, unspecified; R53.81 Other malaise

== ENCOUNTER → 2020-01-11 | Outpatient (REF) | payer MEDICARE, OTHER | LOC: M LAB REF 16:37 | PROVIDERS: ATTEND Physician Assistant | DX: R30.0 Dysuria (principal) ==

== ENCOUNTER → 2020-02-10 | Outpatient (REF) | payer MEDICARE, OTHER ==
[~2020-02-10] MED LIST changes: +AMLO1TAB24 PO; -AMLO5TAB6 PO
== END ==
LOC: M LAB REF 09:29
PROVIDERS: ATTEND Surgery
DX: L72.11 Pilar cyst (principal)

== ENCOUNTER → 2020-05-09 | Outpatient (REF) | payer MEDICARE, OTHER ==
[2020-05-09 18:11] LABS: APPEARANCE, URINE HAZY (CLEAR); BACTERIA, URINE AUTO NEGATIVE (NEGATIVE); BILIRUBIN, URINE AUTO NEGATIVE (NEGATIVE); BLOOD, URINE BLOOD NEGATIVE (NEGATIVE); COLOR, URINE YELLOW (YELLOW); GLUCOSE, URINE (UA) AUTO NEGATIVE (NEGATIVE); KETONE, URINE AUTO NEGATIVE (NEGATIVE); LEUKOCYTE ESTERASE, URINE AUTO NEGATIVE (NEGATIVE); NITRITE, URINE AUTO NEGATIVE (NEGATIVE); PROTEIN, URINE AUTO NEGATIVE (NEGATIVE); RBC, URINE AUTO 0 /HPF (0-3); SPECIFIC GRAVITY URINE AUTO 1.009 (1.002-1.035); SQUAMOUS EPITHELIAL CELL UR AU 0 /HPF (0-6); UROBILINOGEN, URINE AUTO 0.2 mg/dL (0.0-2.0); WBC, URINE AUTO 2 /HPF (0-3)
== END ==
LOC: M LAB REF 16:55
PROVIDERS: ATTEND Physician Assistant
DX: R30.0 Dysuria (principal)

== ENCOUNTER → 2020-06-16 | Outpatient (REF) | payer MEDICARE, OTHER | LOC: M SFHCRHEU 10:21 | PROVIDERS: ATTEND Internal Medicine | DX: R76.8 Other specified abnormal immunological findings in serum (principal); R68.2 Dry mouth, unspecified; R53.82 Chronic fatigue, unspecified; M79.10 Myalgia, unspecified site ==

== ENCOUNTER → 2020-06-17 | Outpatient (CLI) | payer MEDICARE, OTHER ==
--- NOTE | 2020-06-17 09:54 | REP ---
INDICATION: GENERALIZED OSTEOARTHRITIS. COMPARISON: None. TECHNIQUE: Four views FINDINGS: Right hand: Advanced asymmetric intra digital joint space narrowing is seen involving all distal interphalangeal joints and the interphalangeal joint of the 1st digit. This is seen with prominent marginal osteophytosis involving digits 1 through 3. More moderate and symmetric appearing intra digital joint space narrowing is seen involving the proximal interphalangeal joints of all digits without prominent marginal osteophytosis. Marginal erosions are seen involving the DIP joints of digits 1 through 5. The bones are demineralized. Rather symmetric appearing joint space narrowing is seen involving all metacarpophalangeal joints without prominent marginal osteophytosis. No metacarpophalangeal joint marginal erosions are noted. There is no acute fracture. Left hand: Advanced asymmetric intra digital joint space narrowing is seen involving the interphalangeal joint of the 1st digit and the distal interphalangeal joints of digits 2 and 3. More moderate asymmetric intra digital joint space narrowing seen involving the DIP joints of digits 4 and 5. There is moderate rather symmetric appearing joint space narrowing seen involving the proximal interphalangeal joints. The bones are demineralized. Symmetric joint space narrowing seen involving all metacarpophalangeal joints without evidence of prominent marginal osteophytosis or marginal erosions. There is no acute fracture. IMPRESSION: Advanced bilateral degenerative changes as described above. <Electronically signed by Jose A Richter > 06/17/20 [id number]
--- NOTE | 2020-06-17 09:56 | REP ---
INDICATION: GENERALIZED OSTEOARTHRITIS. COMPARISON: None. TECHNIQUE: Four views each wrist FINDINGS: Right wrist: Degenerative changes seen throughout the right wrist particularly laterally and involving the 1st carpal metacarpal joint. There is joint space narrowing and osteophytosis. There is subchondral sclerosis. There is an old healed distal radial fracture. There is no acute fracture. Left wrist: Old healed distal radial and distal ulnar fractures are noted. The bones are demineralized. Degenerative change seen throughout the wrist. Particularly affecting the 1st carpometacarpal joint. There is joint space narrowing osteophytosis. There is no acute fracture. IMPRESSION: Bilateral chronic changes as described above. <Electronically signed by Jose A Richter > 06/17/20 [id number]
--- NOTE | 2020-06-17 09:59 | REP ---
INDICATION: GENERALIZED OSTEOARTHRITIS. COMPARISON: None. TECHNIQUE: Four views FINDINGS: The bones are demineralized bilaterally. The mortise is intact bilaterally. There is no acute fracture bilaterally. Plantar and retrocalcaneal heel spurs are seen on the right with a retrocalcaneal heel spur seen on the left. IMPRESSION: Chronic changes <Electronically signed by Jose A Richter > 06/17/20 [id number]
[2020-06-17 10:23] LABS: BASO # 0.1 10^3/uL (0.0-0.2); BASO % 1.2 % (0.0-1.0); EOS # 0.2 10^3/uL (0.0-0.5); HEMATOCRIT 42.1 % (36.0-47.0); HEMOGLOBIN 12.8 g/dl (12.0-15.5); LYMPH # 1.9 10^3/uL (1.5-5.0); MEAN CORPUSCULAR HGB CONC 30.4 g/dl (32.0-36.5); MEAN CORPUSCULAR VOLUME 88.8 fl (80.0-96.0); MONO # 0.6 10^3/uL (0.0-0.8); MONO % 6.5 % (0.0-5.0); NEUTROPHILS # 5.8 10^3/uL (1.5-8.5); NEUTROPHILS % 68.1 % (36.0-66.0); PLATELET COUNT, AUTOMATED 348 10^3/uL (150-450); RED BLOOD COUNT 4.74 10^6/uL (4.00-5.40); WHITE BLOOD COUNT 8.6 10^3/uL (4.0-10.0)
[2020-06-17 10:27] LABS: APPEARANCE, URINE CLOUDY (CLEAR); BACTERIA, URINE AUTO 3+ (NEGATIVE); BILIRUBIN, URINE AUTO NEGATIVE (NEGATIVE); BLOOD, URINE BLOOD NEGATIVE (NEGATIVE); COLOR, URINE YELLOW (YELLOW); GLUCOSE, URINE (UA) AUTO NEGATIVE (NEGATIVE); KETONE, URINE AUTO NEGATIVE (NEGATIVE); LEUKOCYTE ESTERASE, URINE AUTO 1+ (NEGATIVE); NITRITE, URINE AUTO NEGATIVE (NEGATIVE); PROTEIN, URINE AUTO NEGATIVE (NEGATIVE); RBC, URINE AUTO 6 /HPF (0-3); SPECIFIC GRAVITY URINE AUTO 1.004 (1.002-1.035); SQUAMOUS EPITHELIAL CELL UR AU 11 /HPF (0-6); UROBILINOGEN, URINE AUTO 0.2 mg/dL (0.0-2.0); WBC, URINE AUTO 14 /HPF (0-3)
[2020-06-17 10:51] LABS: CREATININE,RANDOM URINE 17.4 MG/DL
[2020-06-17 10:53] LABS: ERYTHROCYTE SEDIMENTATION RATE 14 mm/hr (0-30)
[2020-06-17 11:05] LABS: ALBUMIN 4.5 GM/DL (3.2-5.2); ALT/SGPT 24 U/L (12-78); BILIRUBIN,DIRECT < 0.1 MG/DL (0.0-0.2); BILIRUBIN,TOTAL 0.3 MG/DL (0.2-1.0); BLOOD UREA NITROGEN 14 MG/DL (7-18); CALCIUM LEVEL 9.9 MG/DL (8.8-10.2); CARBON DIOXIDE LEVEL 29 MEQ/L (21-32); CHLORIDE LEVEL 102 MEQ/L (98-107); COMPLEMENT C3 130 MG/DL (90-180); COMPLEMENT C4 30 MG/DL (10-40); CPK CREATINE PHOSPHOKINASE 70 U/L (26-192); CREATININE FOR GFR 0.56 MG/DL (0.55-1.30); GLOMERULAR FILTRATION RATE > 60.0 (>32); GLUCOSE, FASTING 102 MG/DL (70-100); IRON (FE) 79 UG/DL (50-170); PHOSPHORUS LEVEL 3.5 MG/DL (2.5-4.9); POTASSIUM SERUM 3.9 MEQ/L (3.5-5.1); PTH INTACT 49.1 PG/ML (18.5-88.0); SODIUM LEVEL 137 MEQ/L (136-145); TOTAL 25(OH) VITAMIN D 28.4 NG/ML (30.0-100.0); TOTAL PROTEIN 7.8 GM/DL (6.4-8.2); VITAMIN B12 LEVEL 708 PG/ML (247-911)
[2020-06-20 14:40] LABS: ALBUMIN 4.47 GM/DL (3.29-5.55); ALBUMIN % 57.3 % (55.8-66.1); ALPHA-1-GLOBULIN % 4.5 % (2.9-4.9); ALPHA-1-GLOBULINS 0.35 GM/DL (0.17-0.41); ALPHA-2-GLOBULINS % 11.5 % (7.1-11.8); BETA-1-GLOBULINS 0.55 GM/DL (0.28-0.60); BETA-1-GLOBULINS % 7.1 % (4.7-7.2); BETA-2-GLOBULINS 0.52 GM/DL (0.19-0.55); BETA-2-GLOBULINS % 6.7 % (3.2-6.5); GAMMA GLOBULIN % 12.9 % (11.1-18.8)
[2020-06-20 14:41] LABS: GAMMA GLOBULINS 1.01 GM/DL (0.65-1.58)
[2020-06-22 11:01] LABS: DRVV SCREEN 36.2 SEC
[2020-06-22 11:03] LABS: PTT LUPUS TYPE ANTICOAG SCREEN 0.9 (0-1.2)
[2020-06-23 13:09] LABS: ANA (HEP2) Positive (.); ANTI CENTROMERE ANTIBODY <0.2 AI (0.0-0.9); ANTI DS-DNA AB Positive (Negative); ANTI SCLERODERMA ANTIBODIES <0.2 AI (0.0-0.9); BETA-2 GLYCOPROTEIN I ABY IGA <9 (0-25); BETA-2 GLYCOPROTEIN I ABY IGG <9 (0-20); BETA-2 GLYCOPROTEIN I ABY IGM <9 (0-32); CARDIOLIPIN IGA ANTIBODY <9 APL U/mL (0-11); CARDIOLIPIN IGG ANTIBODY <9 GPL U/mL (0-14); CARDIOLIPIN IGM ANTIBODY 10 MPL U/mL (0-12); RNP ANTIBODY < 0.2 AI (0.0-0.9); SMITHS ANTIBODY < 0.2 AI (0.0-0.9); SSA SJOGRENS A <0.2 AI (0.0-0.9); SSB SJOGRENS B <0.2 AI (0.0-0.9)
== END ==
LOC: M LAB 08:42
PROVIDERS: ATTEND Internal Medicine
DX: R76.8 Other specified abnormal immunological findings in serum (principal); R68.2 Dry mouth, unspecified; R53.82 Chronic fatigue, unspecified; M79.10 Myalgia, unspecified site; M19.071 Primary osteoarthritis, right ankle and foot; M19.072 Primary osteoarthritis, left ankle and foot; M19.041 Primary osteoarthritis, right hand; M19.042 Primary osteoarthritis, left hand; M19.031 Primary osteoarthritis, right wrist; M19.032 Primary osteoarthritis, left wrist; M77.31 Calcaneal spur, right foot; M77.32 Calcaneal spur, left foot; Z79.899 Other long term (current) drug therapy

== ENCOUNTER → 2020-06-22 | Outpatient (CLI) | payer MEDICARE, OTHER ==
--- NOTE | 2020-06-22 11:42 | DEXAMM ---
INDICATION: Z78.0 ASYMPTOMATIC MENOPAUSAL STATE. COMPARISON: Comparison study August 19, 2009 and May 09, 2006.. TECHNIQUE: Bone density was measured using dual-energy x-ray absorptionmetry (DEXA). FINDINGS: AP SPINE L1-L4 BMD 1.213 g/cm2 Young Adult T-Score 0.3 Age Matched Z-Score 2.2. LT FEMUR, TOTAL BMD 0.749 g/cm2 Young Adult T-Score -2.1 Age Matched Z-Score 0.4. LT NECK BMD 0.722 g/cm2 Young Adult T-Score -2.3 Age Matched Z-Score 0.2. RT FEMUR, TOTAL BMD 0.784 g/cm2 Young Adult T-Score -1.8 Age Matched Z-Score 0.6. RT NECK BMD 0.729 g/cm2 Young Adult T-Score -2.2 Age Matched Z-Score 0.3. IMPRESSION: There is normal bone density of the spine. There is low bone density of the left hip. There is low bone density of the right hip. The density of the spine has increased 12.7% since the initial exam on May 09, 2006. The density of the spine increased 7.0% since most recent exam on August 19, 2009. The density of the left hip has decreased 10.2% since initial exam on May 09, 2006. The density of the left hip has decreased 8.5% since most recent exam on August 19, 2009. The density of the right hip has decreased 9.6% since the initial exam on May 09, 2006. The density of the right hip has decreased 5.7% since the most recent exam on August 19, 2009. FOLLOW-UP: Recommendation for the next bone density exam: 2 years. <Electronically signed by Alverto De Los Santos > 06/22/20 [id number]
== END ==
LOC: M WHC 09:46
PROVIDERS: ATTEND Internal Medicine
DX: Z78.0 Asymptomatic menopausal state (principal)

== ENCOUNTER → 2020-06-30 | Outpatient (REF) | payer MEDICARE, OTHER | LOC: M LAB REF 09:27 | PROVIDERS: ATTEND Internal Medicine | DX: R76.8 Other specified abnormal immunological findings in serum (principal); M79.10 Myalgia, unspecified site; R53.82 Chronic fatigue, unspecified ==

== ENCOUNTER → 2020-08-30 | Outpatient (CLI) | payer MEDICARE, OTHER ==
[2020-08-30 08:33] LABS: ALBUMIN 3.8 GM/DL (3.2-5.2); ALT/SGPT 23 U/L (12-78); BILIRUBIN,TOTAL 0.3 MG/DL (0.2-1.0); BLOOD UREA NITROGEN 17 MG/DL (7-18); CALCIUM LEVEL 9.5 MG/DL (8.8-10.2); CARBON DIOXIDE LEVEL 31 MEQ/L (21-32); CHLORIDE LEVEL 105 MEQ/L (98-107); CREATININE FOR GFR 0.59 MG/DL (0.55-1.30); GLOMERULAR FILTRATION RATE > 60.0 (>32); GLUCOSE, FASTING 100 MG/DL (70-100); SODIUM LEVEL 141 MEQ/L (136-145); TOTAL PROTEIN 7.5 GM/DL (6.4-8.2)
[2020-08-30 09:06] LABS: HEMOGLOBIN A1c 5.7 %
== END ==
LOC: M LAB 07:26
PROVIDERS: ATTEND Physician Assistant
DX: E11.51 Type 2 diabetes mellitus with diabetic peripheral angiopathy without gangrene (principal)

== ENCOUNTER → 2020-11-09 | Outpatient (CLI) | payer MEDICARE, OTHER ==
[2020-11-09 08:18] LABS: BASO # 0.1 10^3/uL (0.0-0.2); BASO % 1.4 % (0.0-1.0); EOS # 0.3 10^3/uL (0.0-0.5); EOS % 4.4 % (0.0-3.0); HEMATOCRIT 40.2 % (36.0-47.0); HEMOGLOBIN 12.4 g/dl (12.0-15.5); LYMPH # 2.3 10^3/uL (1.5-5.0); LYMPH % 35.9 % (24.0-44.0); MEAN CORPUSCULAR HEMOGLOBIN 27.3 pg (27.0-33.0); MEAN CORPUSCULAR HGB CONC 30.8 g/dl (32.0-36.5); MEAN CORPUSCULAR VOLUME 88.4 fl (80.0-96.0); MONO # 0.6 10^3/uL (0.0-0.8); PLATELET COUNT, AUTOMATED 271 10^3/uL (150-450); RED BLOOD COUNT 4.55 10^6/uL (4.00-5.40); WHITE BLOOD COUNT 6.3 10^3/uL (4.0-10.0)
[2020-11-09 08:44] LABS: HEMOGLOBIN A1c 5.7 %
[2020-11-09 08:58] LABS: ALBUMIN 3.7 GM/DL (3.2-5.2); ALT/SGPT 22 U/L (12-78); BILIRUBIN,TOTAL 0.4 MG/DL (0.2-1.0); BLOOD UREA NITROGEN 13 MG/DL (7-18); CALCIUM LEVEL 9.4 MG/DL (8.8-10.2); CARBON DIOXIDE LEVEL 32 MEQ/L (21-32); CHLORIDE LEVEL 104 MEQ/L (98-107); CHOLESTEROL LEVEL 265 MG/DL (<200); CHOLESTEROL RISK RATIO 2.548 (<5); CREATININE FOR GFR 0.45 MG/DL (0.55-1.30); FREE T4 1.16 NG/DL (0.76-1.46); GLOMERULAR FILTRATION RATE > 60.0 (>32); GLUCOSE, FASTING 98 MG/DL (70-100); HDL CHOLESTEROL 104 MG/DL (>40); LDL CHOLESTEROL 146 MG/DL (<100); NON-HDL-C 161 MG/DL; POTASSIUM SERUM 3.8 MEQ/L (3.5-5.1); SODIUM LEVEL 140 MEQ/L (136-145); TOTAL PROTEIN 7.2 GM/DL (6.4-8.2); TRIGLYCERIDES LEVEL 77 MG/DL (<150)
== END ==
LOC: M LAB 07:28
PROVIDERS: ATTEND Physician Assistant
DX: I10 Essential (primary) hypertension (principal)

== ENCOUNTER → 2020-12-22 | Outpatient (REF) | payer MEDICARE, OTHER ==
[~2020-12-22] MED LIST changes: +GABA-283 PO; -GABA-845 PO
== END ==
LOC: M LAB REF 16:50
PROVIDERS: ATTEND Physician Assistant
DX: R30.0 Dysuria (principal)

== ENCOUNTER → 2021-01-10 | Outpatient (CLI) | payer MEDICARE, OTHER ==
--- NOTE | 2021-01-10 15:20 | REPVR ---
PROCEDURE INFORMATION: Exam: CT Maxillofacial Without Contrast, Sinus Exam date and time: 01/10/2021 2:26 PM Age: 89 years old Clinical indication: Sinusitis; Chronic TECHNIQUE: Imaging protocol: CT Maxillofacial without contrast. Focus on the sinuses. Radiation optimization: All CT scans at this facility use at least one of these dose optimization techniques: automated exposure control; mA and/or kV adjustment per patient size (includes targeted exams where dose is matched to clinical indication); or iterative reconstruction. 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 Ethmoid air cells: Normal. No air-fluid levels. Sphenoid sinuses: Normal. No air-fluid levels. Maxillary sinuses: There is a 9 mm mucous retention cyst within the left maxillary sinus. Trace mucosal thickening is present in the maxillary sinuses. There are no air-fluid levels. Nasal cavity/Septum: Leftward bowing of the anterior nasal septum is present. There is mild rightward bowing of the mid/inferior nasal septum. A tiny rightward directed nasal spur is noted in this area. Orbital cavity: The patient is likely status post bilateral cataract surgery. Bones/joints: Chronic left orbital floor and left maxillary sinus fractures are present. Soft tissues: Unremarkable. IMPRESSION: No acute abnormality. Electronically signed by: Antonio Cid On 01/10/2021 15:19:53 PM
== END ==
LOC: M RAD 13:59
PROVIDERS: ATTEND Otolaryngology
DX: J32.4 Chronic pansinusitis (principal)

== ENCOUNTER → 2021-02-21 | Outpatient (REF) | payer MEDICARE, OTHER ==
[2021-02-21 17:56] LABS: APPEARANCE, URINE HAZY (CLEAR); BACTERIA, URINE AUTO 1+ (NEGATIVE); BILIRUBIN, URINE AUTO NEGATIVE (NEGATIVE); BLOOD, URINE BLOOD NEGATIVE (NEGATIVE); COLOR, URINE YELLOW (YELLOW); GLUCOSE, URINE (UA) AUTO NEGATIVE (NEGATIVE); KETONE, URINE AUTO NEGATIVE (NEGATIVE); LEUKOCYTE ESTERASE, URINE AUTO 2+ (NEGATIVE); MUCUS, URINE SMALL (NEGATIVE); NITRITE, URINE AUTO POSITIVE (NEGATIVE); PROTEIN, URINE AUTO NEGATIVE (NEGATIVE); RBC, URINE AUTO 1 /HPF (0-3); SPECIFIC GRAVITY URINE AUTO 1.006 (1.002-1.035); SQUAMOUS EPITHELIAL CELL UR AU 1 /HPF (0-6); UROBILINOGEN, URINE AUTO 0.2 mg/dL (0.0-2.0); WBC, URINE AUTO 13 /HPF (0-3)
== END ==
LOC: M LAB REF 16:57
PROVIDERS: ATTEND Physician Assistant
DX: R30.0 Dysuria (principal)

== ENCOUNTER → 2021-04-06 | Outpatient (REF) | payer MEDICARE, OTHER | LOC: M LAB REF 17:49 | PROVIDERS: ATTEND Physician Assistant | DX: R06.00 Dyspnea, unspecified (principal) ==

== ENCOUNTER → 2021-05-04 | Outpatient (REF) | payer MEDICARE, OTHER ==
[2021-05-04 17:57] LABS: APPEARANCE, URINE HAZY (CLEAR); BACTERIA, URINE AUTO 1+ (NEGATIVE); BILIRUBIN, URINE AUTO NEGATIVE (NEGATIVE); BLOOD, URINE BLOOD NEGATIVE (NEGATIVE); COLOR, URINE YELLOW (YELLOW); GLUCOSE, URINE (UA) AUTO NEGATIVE (NEGATIVE); KETONE, URINE AUTO NEGATIVE (NEGATIVE); LEUKOCYTE ESTERASE, URINE AUTO TRACE (NEGATIVE); NITRITE, URINE AUTO POSITIVE (NEGATIVE); PROTEIN, URINE AUTO NEGATIVE (NEGATIVE); RBC, URINE AUTO 1 /HPF (0-3); SQUAMOUS EPITHELIAL CELL UR AU 1 /HPF (0-6); UROBILINOGEN, URINE AUTO 0.2 mg/dL (0.0-2.0); WBC, URINE AUTO 12 /HPF (0-3)
== END ==
LOC: M LAB REF 17:21
PROVIDERS: ATTEND Physician Assistant
DX: R30.0 Dysuria (principal)

== ENCOUNTER → 2021-05-10 | Outpatient (CLI) | payer MEDICARE, OTHER ==
--- NOTE | 2021-05-10 16:23 | REP ---
INDICATION: RECURRENT UTI- US AFTER APPT @ 4PM. COMPARISON: Multiple the latest 03/28/2019 a portable exam TECHNIQUE: PA and lateral views FINDINGS: There is mild cardiomegaly status quo. The lung lopez are clear and stable. The pleural angles are again seen to be sharp. The osseous structures are within normal limits for the patient's age. IMPRESSION: There is no acute cardiopulmonary disease. <Electronically signed by Jose A Richter > 05/10/21 [id number]
--- NOTE | 2021-05-11 10:24 | REP ---
INDICATION: RECURRENT UTI-XRAY FIRST. COMPARISON: None. TECHNIQUE: Real-time sonographic transvesical evaluation of the urinary bladder FINDINGS: The pre void urinary bladder volume calculation is 430 cc. The postvoid urinary bladder volume calculation is 0 cc. There are no gross masses. IMPRESSION: No postvoid residual or other abnormalities as described. <Electronically signed by Jose A Richter > 05/11/21 [id number]
== END ==
LOC: M RAD 15:11
PROVIDERS: ATTEND Physician Assistant
DX: N39.0 Urinary tract infection, site not specified (principal)

== ENCOUNTER → 2021-05-18 | Outpatient (REF) | payer MEDICARE, OTHER | LOC: M LAB REF 17:11 | PROVIDERS: ATTEND Physician Assistant | DX: R30.0 Dysuria (principal) ==

== ENCOUNTER → 2021-06-05 | Outpatient (REF) | payer MEDICARE, OTHER ==
[~2021-06-05] MED LIST changes: +LOSA25TA13 PO; -LOSA25TA14 PO
[2021-06-05 13:39] LABS: APPEARANCE, URINE CLOUDY (CLEAR); BACTERIA, URINE AUTO NEGATIVE (NEGATIVE); BILIRUBIN, URINE AUTO NEGATIVE (NEGATIVE); BLOOD, URINE BLOOD NEGATIVE (NEGATIVE); COLOR, URINE YELLOW (YELLOW); GLUCOSE, URINE (UA) AUTO NEGATIVE (NEGATIVE); KETONE, URINE AUTO NEGATIVE (NEGATIVE); LEUKOCYTE ESTERASE, URINE AUTO 3+ (NEGATIVE); NITRITE, URINE AUTO POSITIVE (NEGATIVE); PROTEIN, URINE AUTO NEGATIVE (NEGATIVE); RBC, URINE AUTO 2 /HPF (0-3); SQUAMOUS EPITHELIAL CELL UR AU 1 /HPF (0-6); UROBILINOGEN, URINE AUTO 0.2 mg/dL (0.0-2.0); WBC, URINE AUTO 46 /HPF (0-3)
== END ==
LOC: M SMT 12:54
PROVIDERS: ATTEND Urology
DX: N39.0 Urinary tract infection, site not specified (principal)
CPT/HCPCS: 51798; 81001; 87088; 87184; 87186; G0463

== ENCOUNTER → 2021-06-22 | Outpatient (CLI) | payer MEDICARE, OTHER ==
[~2021-06-22] MED LIST changes: -LOSA25TA13 PO; +LOSA25TA14 PO
[2021-06-22 08:48] LABS: BLOOD UREA NITROGEN 17 MG/DL (7-18); CALCIUM LEVEL 9.9 MG/DL (8.8-10.2); CARBON DIOXIDE LEVEL 29 MEQ/L (21-32); CHLORIDE LEVEL 102 MEQ/L (98-107); GLOMERULAR FILTRATION RATE > 60.0 (>32); GLUCOSE, FASTING 90 MG/DL (70-100); POTASSIUM SERUM 3.9 MEQ/L (3.5-5.1); SODIUM LEVEL 138 MEQ/L (136-145)
== END ==
LOC: M LAB 07:34
PROVIDERS: ATTEND Urology
DX: N39.0 Urinary tract infection, site not specified (principal)

== ENCOUNTER → 2021-06-26 | Outpatient (CLI) | payer MEDICARE, OTHER ==
[~2021-06-26] MED LIST changes: +ISOVUE-370 76% 100ML VIAL ONE; +LOSA25TA13 PO; -LOSA25TA14 PO
== END ==
LOC: M PLAIMG 11:35
PROVIDERS: ATTEND Urology
DX: N20.0 Calculus of kidney (principal); N39.0 Urinary tract infection, site not specified; K57.90 Diverticulosis of intestine, part unspecified, without perforation or abscess without bleeding
CPT/HCPCS: 74178; Q9967

== ENCOUNTER → 2021-06-29 | Outpatient (CLI) | payer MEDICARE, OTHER ==
[~2021-06-29] MED LIST changes: -ISOVUE-370 76% 100ML VIAL ONE; -LOSA25TA13 PO; +LOSA25TA14 PO
== END ==
LOC: M PLAIMG 14:57
PROVIDERS: ATTEND Otolaryngology
DX: J32.4 Chronic pansinusitis (principal)

== ENCOUNTER → 2021-08-24 | Outpatient (CLI) | payer MEDICARE, OTHER ==
[~2021-08-24] MED LIST changes: +LOSA25TA13 PO; -LOSA25TA14 PO
[2021-08-24 10:52] LABS: BASO # 0.1 10^3/uL (0.0-0.2); BASO % 0.7 % (0.0-1.0); EOS # 0.2 10^3/uL (0.0-0.5); EOS % 1.8 % (0.0-3.0); HEMATOCRIT 37.2 % (36.0-47.0); HEMOGLOBIN 11.9 g/dl (12.0-15.5); LYMPH # 2.6 10^3/uL (1.5-5.0); LYMPH % 20.9 % (24.0-44.0); MEAN CORPUSCULAR HEMOGLOBIN 27.5 pg (27.0-33.0); MEAN CORPUSCULAR VOLUME 85.9 fl (80.0-96.0); MONO # 0.9 10^3/uL (0.0-0.8); MONO % 7.5 % (2.0-8.0); NEUTROPHILS # 8.6 10^3/uL (1.5-8.5); NEUTROPHILS % 68.8 % (36.0-66.0); PLATELET COUNT, AUTOMATED 254 10^3/uL (150-450); RED BLOOD COUNT 4.33 10^6/uL (4.00-5.40); WHITE BLOOD COUNT 12.5 10^3/uL (4.0-10.0)
[2021-08-24 11:11] LABS: ERYTHROCYTE SEDIMENTATION RATE 8 mm/hr (0-30)
[2021-08-24 11:45] LABS: ALBUMIN 3.9 GM/DL (3.2-5.2); ALT/SGPT 20 U/L (12-78); BILIRUBIN,TOTAL 0.3 MG/DL (0.2-1.0); BLOOD UREA NITROGEN 17 MG/DL (7-18); CALCIUM LEVEL 9.6 MG/DL (8.8-10.2); CARBON DIOXIDE LEVEL 27 MEQ/L (21-32); CHLORIDE LEVEL 103 MEQ/L (98-107); CREATININE FOR GFR 0.62 MG/DL (0.55-1.30); FREE T4 1.03 NG/DL (0.76-1.46); GLOMERULAR FILTRATION RATE > 60.0 (>32); GLUCOSE, FASTING 82 MG/DL (70-100); LDH LACTATE DEHYDROGENASE 158 U/L (84-246); POTASSIUM SERUM 4.2 MEQ/L (3.5-5.1); SODIUM LEVEL 138 MEQ/L (136-145)
[2021-08-24 12:17] LABS: CA19-9 TUMOR MARKER,CARBOHYDRA < 1.2 U/ML (<35.0)
[2021-08-24 13:38] LABS: CA 125 5.3 U/ML (<30.2)
== END ==
LOC: M LAB 09:43
PROVIDERS: ATTEND Physician Assistant
DX: R63.4 Abnormal weight loss (principal)

== ENCOUNTER → 2021-08-31 | Outpatient (CLI) | payer MEDICARE, OTHER ==
[~2021-08-31] MED LIST changes: +GASTROGRAFIN SOLUTION 30ML (Q9963) As Ordered ONE; +ISOVUE-370 76% 100ML VIAL As Ordered ONE
== END ==
LOC: M RAD 11:37
PROVIDERS: ATTEND Physician Assistant
DX: R63.4 Abnormal weight loss (principal)
CPT/HCPCS: 71260; 74177; Q9963; Q9967

== ENCOUNTER → 2021-10-02 | Outpatient (CLI) | payer MEDICARE, OTHER ==
[~2021-10-02] MED LIST changes: -GASTROGRAFIN SOLUTION 30ML (Q9963) As Ordered ONE; -ISOVUE-370 76% 100ML VIAL As Ordered ONE
[2021-10-02 08:43] LABS: BASO # 0.1 10^3/uL (0.0-0.2); BASO % 1.6 % (0.0-1.0); EOS # 0.2 10^3/uL (0.0-0.5); EOS % 2.8 % (0.0-3.0); HEMATOCRIT 36.8 % (36.0-47.0); HEMOGLOBIN 11.6 g/dl (12.0-15.5); LYMPH # 2.4 10^3/uL (1.5-5.0); LYMPH % 36.8 % (24.0-44.0); MEAN CORPUSCULAR HGB CONC 31.5 g/dl (32.0-36.5); MEAN CORPUSCULAR VOLUME 88.9 fl (80.0-96.0); MONO # 0.8 10^3/uL (0.0-0.8); MONO % 11.6 % (2.0-8.0); PLATELET COUNT, AUTOMATED 254 10^3/uL (150-450); RED BLOOD COUNT 4.14 10^6/uL (4.00-5.40); WHITE BLOOD COUNT 6.4 10^3/uL (4.0-10.0)
[2021-10-02 09:11] LABS: HEMOGLOBIN A1c 5.4 %
[2021-10-02 10:11] LABS: ALBUMIN 3.8 GM/DL (3.2-5.2); ALT/SGPT 26 U/L (12-78); BILIRUBIN,TOTAL 0.4 MG/DL (0.2-1.0); BLOOD UREA NITROGEN 14 MG/DL (7-18); CALCIUM LEVEL 9.5 MG/DL (8.8-10.2); CARBON DIOXIDE LEVEL 33 MEQ/L (21-32); CHLORIDE LEVEL 104 MEQ/L (98-107); CHOLESTEROL LEVEL 219 MG/DL (<200); CHOLESTEROL RISK RATIO 2.147 (<5); CREATININE FOR GFR 0.54 MG/DL (0.55-1.30); GLOMERULAR FILTRATION RATE > 60.0 (>32); GLUCOSE, FASTING 85 MG/DL (70-100); HDL CHOLESTEROL 102 MG/DL (>40); LDL CHOLESTEROL 104 MG/DL (<100); NON-HDL-C 117 MG/DL; POTASSIUM SERUM 4.1 MEQ/L (3.5-5.1); SODIUM LEVEL 139 MEQ/L (136-145); TRIGLYCERIDES LEVEL 65 MG/DL (<150)
== END ==
LOC: M LAB 07:51
PROVIDERS: ATTEND Family Medicine
DX: E78.2 Mixed hyperlipidemia (principal)

== ENCOUNTER → 2021-10-06 | Outpatient (REF) | payer MEDICARE, OTHER ==
[2021-10-06 15:01] LABS: APPEARANCE, URINE CLOUDY (CLEAR); BACTERIA, URINE AUTO 2+ (NEGATIVE); BILIRUBIN, URINE AUTO NEGATIVE (NEGATIVE); BLOOD, URINE BLOOD 1+ (NEGATIVE); COLOR, URINE YELLOW (YELLOW); GLUCOSE, URINE (UA) AUTO NEGATIVE (NEGATIVE); KETONE, URINE AUTO NEGATIVE (NEGATIVE); LEUKOCYTE ESTERASE, URINE AUTO 3+ (NEGATIVE); MUCUS, URINE SMALL (NEGATIVE); NITRITE, URINE AUTO POSITIVE (NEGATIVE); PROTEIN, URINE AUTO NEGATIVE (NEGATIVE); RBC, URINE AUTO 13 /HPF (0-3); RENAL EPITHELIAL CELLS 2 /HPF; SPECIFIC GRAVITY URINE AUTO 1.011 (1.002-1.035); SQUAMOUS EPITHELIAL CELL UR AU 81 /HPF (0-6); UROBILINOGEN, URINE AUTO 0.2 mg/dL (0.0-2.0); WBC, URINE AUTO 51 /HPF (0-3)
== END ==
LOC: M LAB REF 14:40
PROVIDERS: ATTEND Nurse Practitioner Adult Health
DX: R30.0 Dysuria (principal); L29.3 Anogenital pruritus, unspecified

== ENCOUNTER → 2021-11-22 | Outpatient (CLI) | payer MEDICARE, OTHER ==
[2021-11-22 08:48] LABS: BASO # 0.1 10^3/uL (0.0-0.2); BASO % 1.9 % (0.0-1.0); EOS # 0.2 10^3/uL (0.0-0.5); HEMATOCRIT 37.2 % (36.0-47.0); HEMOGLOBIN 11.9 g/dl (12.0-15.5); LYMPH # 1.7 10^3/uL (1.5-5.0); LYMPH % 30.2 % (24.0-44.0); MEAN CORPUSCULAR HEMOGLOBIN 28.1 pg (27.0-33.0); MEAN CORPUSCULAR VOLUME 87.9 fl (80.0-96.0); MONO # 0.5 10^3/uL (0.0-0.8); MONO % 9.5 % (2.0-8.0); NEUTROPHILS # 3.1 10^3/uL (1.5-8.5); NEUTROPHILS % 54.2 % (36.0-66.0); PLATELET COUNT, AUTOMATED 245 10^3/uL (150-450); RED BLOOD COUNT 4.23 10^6/uL (4.00-5.40); WHITE BLOOD COUNT 5.7 10^3/uL (4.0-10.0)
[2021-11-22 09:22] LABS: BLOOD UREA NITROGEN 18 MG/DL (7-18); CARBON DIOXIDE LEVEL 30 MEQ/L (21-32); CHLORIDE LEVEL 105 MEQ/L (98-107); CREATININE FOR GFR 0.54 MG/DL (0.55-1.30); GLOMERULAR FILTRATION RATE > 60.0 (>32); GLUCOSE, FASTING 84 MG/DL (70-100); MAGNESIUM LEVEL 2.2 MG/DL (1.8-2.4); POTASSIUM SERUM 4.2 MEQ/L (3.5-5.1); SODIUM LEVEL 140 MEQ/L (136-145); TOTAL 25(OH) VITAMIN D 36.4 NG/ML (30.0-100.0)
[2021-11-22 10:30] LABS: HEMOGLOBIN A1c 5.7 %
== END ==
LOC: M LAB 07:17
PROVIDERS: ATTEND Nurse Practitioner Adult Health
DX: E11.42 Type 2 diabetes mellitus with diabetic polyneuropathy (principal)

== ENCOUNTER → 2022-01-08 | Outpatient (REF) | payer MEDICARE, OTHER ==
[~2022-01-08] MED LIST changes: -TRIA37.53 PO; +TRIA37.577 PO
[2022-01-08 18:07] LABS: APPEARANCE, URINE HAZY (CLEAR); BACTERIA, URINE AUTO 1+ (NEGATIVE); BILIRUBIN, URINE AUTO NEGATIVE (NEGATIVE); BLOOD, URINE BLOOD NEGATIVE (NEGATIVE); COLOR, URINE YELLOW (YELLOW); GLUCOSE, URINE (UA) AUTO NEGATIVE (NEGATIVE); KETONE, URINE AUTO NEGATIVE (NEGATIVE); LEUKOCYTE ESTERASE, URINE AUTO 3+ (NEGATIVE); MUCUS, URINE SMALL (NEGATIVE); NITRITE, URINE AUTO POSITIVE (NEGATIVE); PROTEIN, URINE AUTO NEGATIVE (NEGATIVE); RBC, URINE AUTO 2 /HPF (0-3); SPECIFIC GRAVITY URINE AUTO 1.011 (1.002-1.035); SQUAMOUS EPITHELIAL CELL UR AU 2 /HPF (0-6); UROBILINOGEN, URINE AUTO 0.2 mg/dL (0.0-2.0); WBC, URINE AUTO 30 /HPF (0-3)
== END ==
LOC: M LAB REF 16:45
PROVIDERS: ATTEND Nurse Practitioner Adult Health
DX: J02.9 Acute pharyngitis, unspecified (principal)

== ENCOUNTER → 2022-02-08 | Outpatient (REF) | payer MEDICARE, OTHER ==
[2022-02-08 19:17] LABS: APPEARANCE, URINE HAZY (CLEAR); BACTERIA, URINE AUTO 2+ (NEGATIVE); BILIRUBIN, URINE AUTO NEGATIVE (NEGATIVE); BLOOD, URINE BLOOD NEGATIVE (NEGATIVE); COLOR, URINE YELLOW (YELLOW); GLUCOSE, URINE (UA) AUTO NEGATIVE (NEGATIVE); KETONE, URINE AUTO NEGATIVE (NEGATIVE); LEUKOCYTE ESTERASE, URINE AUTO 2+ (NEGATIVE); MUCUS, URINE SMALL (NEGATIVE); NITRITE, URINE AUTO POSITIVE (NEGATIVE); PROTEIN, URINE AUTO NEGATIVE (NEGATIVE); RBC, URINE AUTO 1 /HPF (0-3); SPECIFIC GRAVITY URINE AUTO 1.006 (1.002-1.035); SQUAMOUS EPITHELIAL CELL UR AU 14 /HPF (0-6); TRANSITIONAL EPITHELIAL AUTO <1 /HPF; UROBILINOGEN, URINE AUTO 0.2 mg/dL (0.0-2.0); WBC, URINE AUTO 11 /HPF (0-3)
== END ==
LOC: M LAB REF 16:57
PROVIDERS: ATTEND Nurse Practitioner Adult Health
DX: R30.0 Dysuria (principal)

== ENCOUNTER 2022-02-28 18:51 | Inpatient (IN) | payer MEDICARE, OTHER ==
[~2022-02-28] VITALS: Ht 160 cm; Wt 55.0 kg
[2022-02-28] MEDS ORDERED: ACETAMINOPHEN TAB 650MG DOSE (2X325MG) PO ONE (20:00)
[2022-02-28 20:41] LABS: BASO # 0.1 10^3/uL (0.0-0.2); BASO % 0.3 % (0.0-1.0); EOS % 0.1 % (0.0-3.0); HEMATOCRIT 34.1 % (36.0-47.0); HEMOGLOBIN 10.9 g/dl (12.0-15.5); LYMPH # 0.9 10^3/uL (1.5-5.0); LYMPH % 4.2 % (24.0-44.0); MEAN CORPUSCULAR HEMOGLOBIN 27.7 pg (27.0-33.0); MEAN CORPUSCULAR VOLUME 86.8 fl (80.0-96.0); MONO % 4.9 % (2.0-8.0); NEUTROPHILS # 18.4 10^3/uL (1.5-8.5); PLATELET COUNT, AUTOMATED 249 10^3/uL (150-450); RED BLOOD COUNT 3.93 10^6/uL (4.00-5.40); WHITE BLOOD COUNT 20.5 10^3/uL (4.0-10.0)
[2022-02-28 20:52] LABS: INR 0.98; PROTHROMBIN TIME 13.4 SECONDS (12.7-14.5)
[2022-02-28 20:53] LABS: PARTIAL THROMBOPLASTIN TIME 30.4 SECONDS (25.9-37.0)
[2022-02-28 21:10] LABS: ALBUMIN 3.7 GM/DL (3.2-5.2); ALT/SGPT 22 U/L (12-78); BILIRUBIN,DIRECT 0.1 MG/DL (0.0-0.2); BILIRUBIN,TOTAL 0.2 MG/DL (0.2-1.0); BLOOD UREA NITROGEN 18 MG/DL (7-18); CALCIUM LEVEL 9.4 MG/DL (8.8-10.2); CARBON DIOXIDE LEVEL 28 MEQ/L (21-32); CHLORIDE LEVEL 103 MEQ/L (98-107); CREATININE FOR GFR 0.61 MG/DL (0.55-1.30); GLOMERULAR FILTRATION RATE > 60.0 (>32); GLUCOSE, FASTING 153 MG/DL (70-100); POTASSIUM SERUM 3.4 MEQ/L (3.5-5.1); SODIUM LEVEL 137 MEQ/L (136-145); TOTAL PROTEIN 7.1 GM/DL (6.4-8.2)
[2022-02-28 21:21] LABS: RSV AMPLIFICATION NEGATIVE (NEGATIVE)
[2022-02-28] MEDS ORDERED: MORPHINE 2 MG/ML 1ML VIAL IV ONE (21:30)
[2022-02-28] MEDS ORDERED: DEXTROSE 50% 50 ML SYRINGE IV PRN (22:45)
[2022-02-28] MEDS ORDERED: ACETAMINOPHEN TAB 650MG DOSE (2X325MG) PO PRN (22:45)
[2022-02-28] MEDS ORDERED: MORPHINE 2 MG/ML 1ML VIAL IV PRN (22:45)
[2022-02-28] MEDS ORDERED: GLUCOSE 4GM CHEW TABLET PO PRN (22:45)
[2022-02-28] MEDS ORDERED: MOM 30ML SUSPENSION UDC PO PRN (22:45)
[2022-02-28] MEDS ORDERED: GLUCAGON INJ 1MG VIAL SC PRN (22:45)
[2022-02-28] MEDS ORDERED: VITMTA PO (23:26)
[2022-02-28] MEDS ORDERED: HYDR-4571 PO (23:26)
[2022-02-28] MEDS ORDERED: ASPI1CHW3 PO (23:26)
[2022-02-28] MEDS ORDERED: PROC1CRE5 PR (23:26)
[2022-02-28] MEDS ORDERED: CITA20TA6 PO (23:26)
[2022-02-28] MEDS ORDERED: FAMO40TA3 PO (23:26)
[2022-02-28] MEDS ORDERED: HOME MED LIST COMPLETE! XX SCH (23:30)
[2022-03-01] VITALS (8 sets, daily range): BP systolic 104–168; BP diastolic 49–73
[2022-03-01] MEDS: DOCUSATE SODIUM 100MG CAPSULE PO SCH ×3 (01:26→21:06)
[2022-03-01] MEDS: INSULIN LISPRO (NovoLOG) PER UNIT SC SCH ×3 (01:27→12:00)
[2022-03-01 05:55] LABS: HEMATOCRIT 31.5 % (36.0-47.0); HEMOGLOBIN 10.3 g/dl (12.0-15.5); MEAN CORPUSCULAR HGB CONC 32.7 g/dl (32.0-36.5); MEAN CORPUSCULAR VOLUME 85.6 fl (80.0-96.0); PLATELET COUNT, AUTOMATED 234 10^3/uL (150-450); RED BLOOD COUNT 3.68 10^6/uL (4.00-5.40)
[2022-03-01] MEDS ORDERED: HEPARIN SOD (PORCINE) 5000UNITS/ML 1ML VIAL/SYRINGE SC SCH (06:00)
[2022-03-01] MEDS: ONDANSETRON 4MG 2ML VIAL IV PRN (06:07)
[2022-03-01 06:33] LABS: ALBUMIN 3.5 GM/DL (3.2-5.2); ALT/SGPT 20 U/L (12-78); BILIRUBIN,TOTAL 0.5 MG/DL (0.2-1.0); BLOOD UREA NITROGEN 17 MG/DL (7-18); CALCIUM LEVEL 9.1 MG/DL (8.8-10.2); CARBON DIOXIDE LEVEL 27 MEQ/L (21-32); CHLORIDE LEVEL 102 MEQ/L (98-107); CREATININE FOR GFR 0.45 MG/DL (0.55-1.30); GLOMERULAR FILTRATION RATE > 60.0 (>32); GLUCOSE, FASTING 150 MG/DL (70-100); POTASSIUM SERUM 3.4 MEQ/L (3.5-5.1); SODIUM LEVEL 134 MEQ/L (136-145); TOTAL PROTEIN 6.7 GM/DL (6.4-8.2)
[2022-03-01] MEDS ORDERED: POTASSIUM CHLORIDE 10MEQ SR TABLET PO ONE ×2 (07:00→18:00)
[2022-03-01] MEDS ORDERED: NS 1,000 ML IV SCH (07:55)
[2022-03-01] MEDS ORDERED: MORPHINE 2 MG/ML 1ML VIAL IV ONE (08:35)
[2022-03-01] MEDS: KCL 10MEQ/100ML SWI (KRUN) 10 MEQ in IV 1 EA IV SCH ×4 (08:49→12:00)
[2022-03-01] MEDS ORDERED: ASPIRIN 81 MG CHEW TABLET PO SCH (09:00)
[2022-03-01] MEDS: CitaloPRAM (CeleXA) 20 MG TAB PO SCH (09:00)
[2022-03-01] MEDS: LOSARTAN 25 MG TAB PO SCH (09:00)
[2022-03-01] MEDS ORDERED: PREVNAR 13 VACCINE SYRINGE IM.IMMUN ONE (09:00)
[2022-03-01] MEDS: FAMOTIDINE 20 MG TAB PO SCH ×2 (09:00→21:06)
[2022-03-01] MEDS: MULTIVITAMINS/MINERALS THERAP 1 TAB PO SCH (09:00)
[2022-03-01] MEDS: MORPHINE 2 MG/ML 1ML VIAL IV PRN (10:54)
[2022-03-01] MEDS ORDERED: MIDAZOLAM INJ 2MG/2ML VIAL (J2250 PER 1MG) As Ordered ONE (12:59)
[2022-03-01] MEDS ORDERED: fentaNYL 100 MCG/2 ML INJECTION As Ordered ONE (12:59)
[2022-03-01] MEDS ORDERED: KETAMINE HCL 200 MG/20 ML VIAL As Ordered ONE (13:00)
[2022-03-01] MEDS ORDERED: ONDANSETRON 4MG 2ML VIAL As Ordered ONE (13:01)
[2022-03-01] MEDS ORDERED: LIDOCAINE 2% 100MG/5ML SDV (FOR ANES.) As Ordered ONE (13:01)
[2022-03-01] MEDS ORDERED: PHENYLEPHRINE 10MG/ML 1ML VIAL (J2370 PER 1) As Ordered ONE (13:04)
[2022-03-01] MEDS ORDERED: TRANEXAMIC ACID 100 MG/ML 10ML VIAL As Ordered ONE (13:11)
[2022-03-01] MEDS ORDERED: BUPIVACAINE HCL 0.25% 30ML VIAL As Ordered ONE (13:11)
[2022-03-01] MEDS ORDERED: BUPIVACAINE LIPOSOME/PF 1.3% 20ML VIAL (13.3MG/ML)(EXPAREL) As Ordered ONE (13:12)
[2022-03-01] MEDS ORDERED: LIDOCAINE W/EPINEPHRINE 1% 20ML VIAL As Ordered ONE (13:12)
[2022-03-01] MEDS ORDERED: ACETAMINOPHEN 1000MG 100ML IV BTL (OFIRMEV) (J0131 PER 10MG) As Ordered ONE (13:20)
[2022-03-01] MEDS ORDERED: VANCOMYCIN 1000MG/20ML VIAL As Ordered ONE (13:27)
[2022-03-01] MEDS ORDERED: ePHEDrine SULFATE 25 MG/5 ML(5MG/ML) SYRINGE As Ordered ONE (14:39)
[2022-03-01] MEDS ORDERED: PHENYLephrine 500MCG 5ML (100MCG/ML) SYRINGE As Ordered ONE (14:39)
[2022-03-01] MEDS ORDERED: LABETALOL 100MG/20ML VIAL As Ordered ONE (15:16)
[2022-03-01] MEDS ORDERED: oxyCODONE 5MG TAB PO PRN (15:30)
[2022-03-01] MEDS ORDERED: LR 1,000 ML IV SCH (15:30)
[2022-03-01] MEDS ORDERED: fentaNYL 100 MCG/2 ML INJECTION IV PRN (15:30)
[2022-03-01] MEDS ORDERED: ONDANSETRON 4MG 2ML VIAL IV PRN (15:30)
[2022-03-01] MEDS ORDERED: MORPHINE 2 MG/ML 1ML VIAL IV PRN (15:30)
[2022-03-01] MEDS ORDERED: INSULIN LISPRO (NovoLOG) PER UNIT SC PRN (15:45)
[2022-03-01] MEDS: amLODIPine 5 MG TAB PO SCH (21:00)
[2022-03-01] MEDS: NORCO, ANEXSIA 5/325MG TABLET (HYDROcodone/ACETAMINOPHEN) PO PRN (21:07)
[2022-03-02] MEDS: VANCOMYCIN HCL 750 MG, VIAL MATE ADAPTER 1 EACH in NS 250 ML IV SCH ×2 (01:44→13:59)
[2022-03-02 01:45] VITALS: BP 116/66
[2022-03-02] MEDS: MORPHINE 2 MG/ML 1ML VIAL IV PRN ×2 (01:50→20:15)
[2022-03-02 05:50] LABS: HEMATOCRIT 27.6 % (36.0-47.0); HEMOGLOBIN 8.7 g/dl (12.0-15.5); MEAN CORPUSCULAR HGB CONC 31.5 g/dl (32.0-36.5); MEAN CORPUSCULAR VOLUME 88.7 fl (80.0-96.0); PLATELET COUNT, AUTOMATED 186 10^3/uL (150-450); RED BLOOD COUNT 3.11 10^6/uL (4.00-5.40)
[2022-03-02 06:24] VITALS: BP 143/90
[2022-03-02 06:37] LABS: BLOOD UREA NITROGEN 19 MG/DL (7-18); CALCIUM LEVEL 9.3 MG/DL (8.8-10.2); CARBON DIOXIDE LEVEL 31 MEQ/L (21-32); CHLORIDE LEVEL 106 MEQ/L (98-107); CREATININE FOR GFR 0.51 MG/DL (0.55-1.30); GLOMERULAR FILTRATION RATE > 60.0 (>32); GLUCOSE, FASTING 134 MG/DL (70-100); PHOSPHORUS LEVEL 2.4 MG/DL (2.5-4.9); POTASSIUM SERUM 4.9 MEQ/L (3.5-5.1); SODIUM LEVEL 141 MEQ/L (136-145)
[2022-03-02] MEDS: CitaloPRAM (CeleXA) 20 MG TAB PO SCH (08:00)
[2022-03-02] MEDS: NORCO, ANEXSIA 5/325MG TABLET (HYDROcodone/ACETAMINOPHEN) PO PRN ×3 (08:01→23:51)
[2022-03-02] MEDS: DOCUSATE SODIUM 100MG CAPSULE PO SCH ×2 (08:03→20:05)
[2022-03-02] MEDS: LOSARTAN 25 MG TAB PO SCH (08:03)
[2022-03-02] MEDS: FAMOTIDINE 20 MG TAB PO SCH ×2 (08:04→20:05)
[2022-03-02] MEDS: MULTIVITAMINS/MINERALS THERAP 1 TAB PO SCH (08:04)
[2022-03-02 14:00] VITALS: BP 144/55
[2022-03-02] MEDS: RIVAROXABAN 10MG TAB (XARELTO) PO SCH (18:03)
[2022-03-02 20:59] VITALS: BP 166/68
[2022-03-02] MEDS: amLODIPine 5 MG TAB PO SCH (21:43)
[2022-03-03] MEDS: CALCIUM CARBONATE 500 MG CHEW U/D PO PRN ×2 (01:28→20:04)
[2022-03-03] MEDS: MORPHINE 2 MG/ML 1ML VIAL IV PRN (02:42)
[2022-03-03 05:53] VITALS: BP 162/88
[2022-03-03] MEDS: NORCO, ANEXSIA 5/325MG TABLET (HYDROcodone/ACETAMINOPHEN) PO PRN ×5 (06:18→22:21)
[2022-03-03] MEDS ORDERED: NORCO, ANEXSIA 5/325MG TABLET (HYDROcodone/ACETAMINOPHEN) PO PRN (07:35)
[2022-03-03] MEDS: CitaloPRAM (CeleXA) 20 MG TAB PO SCH (08:31)
[2022-03-03] MEDS: MULTIVITAMINS/MINERALS THERAP 1 TAB PO SCH (08:31)
[2022-03-03] MEDS: LOSARTAN 25 MG TAB PO SCH (08:31)
[2022-03-03] MEDS: FAMOTIDINE 20 MG TAB PO SCH ×2 (08:31→22:21)
[2022-03-03] MEDS: DOCUSATE SODIUM 100MG CAPSULE PO SCH ×2 (08:31→22:21)
[2022-03-03] MEDS ORDERED: PREVNAR 13 VACCINE SYRINGE IM.IMMUN ONE (09:00)
[2022-03-03] MEDS: MIRALAX *UNIT DOSE* 17GM PACKET PO SCH ×2 (09:00→22:23)
[2022-03-03 14:00] VITALS: BP 144/87
[2022-03-03] MEDS: ONDANSETRON 4MG 2ML VIAL IV PRN ×2 (15:07→21:33)
[2022-03-03] MEDS: RIVAROXABAN 10MG TAB (XARELTO) PO SCH (18:18)
[2022-03-03 21:54] VITALS: BP 182/82
[2022-03-03] MEDS: amLODIPine 5 MG TAB PO SCH (22:22)
[2022-03-04 06:00] VITALS: BP 147/72
[2022-03-04] MEDS: NORCO, ANEXSIA 5/325MG TABLET (HYDROcodone/ACETAMINOPHEN) PO PRN ×4 (07:12→21:28)
[2022-03-04 07:13] LABS: HEMATOCRIT 26.7 % (36.0-47.0); HEMOGLOBIN 8.5 g/dl (12.0-15.5); MEAN CORPUSCULAR HEMOGLOBIN 27.8 pg (27.0-33.0); MEAN CORPUSCULAR HGB CONC 31.8 g/dl (32.0-36.5); MEAN CORPUSCULAR VOLUME 87.3 fl (80.0-96.0); PLATELET COUNT, AUTOMATED 205 10^3/uL (150-450); RED BLOOD COUNT 3.06 10^6/uL (4.00-5.40); WHITE BLOOD COUNT 13.6 10^3/uL (4.0-10.0)
[2022-03-04 07:46] LABS: BLOOD UREA NITROGEN 18 MG/DL (7-18); CALCIUM LEVEL 9.3 MG/DL (8.8-10.2); CARBON DIOXIDE LEVEL 30 MEQ/L (21-32); CHLORIDE LEVEL 102 MEQ/L (98-107); CREATININE FOR GFR 0.38 MG/DL (0.55-1.30); GLOMERULAR FILTRATION RATE > 60.0 (>32); GLUCOSE, FASTING 121 MG/DL (70-100); POTASSIUM SERUM 3.4 MEQ/L (3.5-5.1); SODIUM LEVEL 137 MEQ/L (136-145)
[2022-03-04] MEDS: DOCUSATE SODIUM 100MG CAPSULE PO SCH ×2 (09:09→21:00)
[2022-03-04] MEDS: FAMOTIDINE 20 MG TAB PO SCH ×2 (09:09→21:27)
[2022-03-04] MEDS: MULTIVITAMINS/MINERALS THERAP 1 TAB PO SCH (09:09)
[2022-03-04] MEDS: LOSARTAN 25 MG TAB PO SCH (09:12)
[2022-03-04] MEDS: CitaloPRAM (CeleXA) 20 MG TAB PO SCH (09:12)
[2022-03-04] MEDS: MIRALAX *UNIT DOSE* 17GM PACKET PO SCH ×2 (09:13→21:00)
[2022-03-04] MEDS: CALCIUM CARBONATE 500 MG CHEW U/D PO PRN (13:27)
[2022-03-04 14:00] VITALS: BP 100/39
[2022-03-04] MEDS: RIVAROXABAN 10MG TAB (XARELTO) PO SCH (17:06)
[2022-03-04] MEDS: amLODIPine 5 MG TAB PO SCH (21:00)
[2022-03-04 22:00] VITALS: BP 103/40
[2022-03-05] MEDS: NORCO, ANEXSIA 5/325MG TABLET (HYDROcodone/ACETAMINOPHEN) PO PRN ×2 (05:26→10:02)
[2022-03-05 05:46] VITALS: BP 132/48
[2022-03-05 08:00] VITALS: BP 132/48
[2022-03-05] MEDS: MIRALAX *UNIT DOSE* 17GM PACKET PO SCH (09:00)
[2022-03-05 10:02] VITALS: BP 126/52
[2022-03-05] MEDS: CitaloPRAM (CeleXA) 20 MG TAB PO SCH (10:04)
[2022-03-05] MEDS: DOCUSATE SODIUM 100MG CAPSULE PO SCH (10:04)
[2022-03-05] MEDS: MULTIVITAMINS/MINERALS THERAP 1 TAB PO SCH (10:06)
[2022-03-05 10:07] VITALS: BP 126/52
[2022-03-05] MEDS: LOSARTAN 25 MG TAB PO SCH (10:07)
[2022-03-05] MEDS: FAMOTIDINE 20 MG TAB PO SCH (10:07)
[2022-03-05] MEDS ORDERED: XARE10TA PO (11:21)
[2022-03-17] MEDS ORDERED: ASPIRIN 81MG ENTERIC TABLET PO SCH (09:00)
== END 2022-03-05 13:40 | DRG 482 ==
LOC: EDBD 18:51 → M ED 18:51 → M ED INP 22:42 → ENRESERV 03-01 00:04 → M MS5PR 03-01 01:45
PROVIDERS: ADMIT Family Medicine; ATTEND Family Medicine
PROC: 0QS746Z Reposition Left Upper Femur with Intramedullary Internal Fixation Device, Percutaneous Endoscopic Approach (ICD-10-PCS; principal; 2022-03-01 12:30)
DX: S72.142A Displaced intertrochanteric fracture of left femur, initial encounter for closed fracture (principal); E11.9 Type 2 diabetes mellitus without complications; I10 Essential (primary) hypertension; M21.611 Bunion of right foot; K59.00 Constipation, unspecified; Z66 Do not resuscitate; Z79.82 Long term (current) use of aspirin; Z79.899 Other long term (current) drug therapy; Z79.84 Long term (current) use of oral hypoglycemic drugs; Z88.1 Allergy status to other antibiotic agents; Z88.2 Allergy status to sulfonamides; Z88.8 Allergy status to other drugs, medicaments and biological substances; Z90.49 Acquired absence of other specified parts of digestive tract; X58.XXXA Exposure to other specified factors, initial encounter; Y93.89 Activity, other specified; Y99.8 Other external cause status; Y92.009 Unspecified place in unspecified non-institutional (private) residence as the place of occurrence of the external cause

== ENCOUNTER 2022-03-05 01:50 | Inpatient (IN) | payer MEDICARE, OTHER ==
[~2022-03-05] VITALS: Ht 160 cm; Wt 58.9 kg
[~2022-03-05 01:50] MED LIST changes: +ASPI1CHW3 PO; +CITA20TA6 PO; +FAMO40TA3 PO; +HYDR-4571 PO; +PROC1CRE5 PR; +VITMTA PO
[2022-03-05] MEDS ORDERED: XARE10TA PO (11:21)
[2022-03-05 13:50] VITALS: BP 140/62
[2022-03-05] MEDS ORDERED: ANUSOL HC CREAM 30GM PR PRN (15:45)
[2022-03-05] MEDS: NORCO, ANEXSIA 5/325MG TABLET (HYDROcodone/ACETAMINOPHEN) PO PRN ×2 (16:13→21:49)
[2022-03-05 17:12] LABS: BASO % 0.3 % (0.0-1.0); EOS # 0.2 10^3/uL (0.0-0.5); EOS % 1.4 % (0.0-3.0); HEMATOCRIT 21.5 % (36.0-47.0); LYMPH # 1.7 10^3/uL (1.5-5.0); LYMPH % 14.9 % (24.0-44.0); MEAN CORPUSCULAR HEMOGLOBIN 28.4 pg (27.0-33.0); MEAN CORPUSCULAR HGB CONC 32.1 g/dl (32.0-36.5); MEAN CORPUSCULAR VOLUME 88.5 fl (80.0-96.0); MONO # 1.1 10^3/uL (0.0-0.8); MONO % 9.5 % (2.0-8.0); NEUTROPHILS # 8.1 10^3/uL (1.5-8.5); NEUTROPHILS % 73.2 % (36.0-66.0); PLATELET COUNT, AUTOMATED 226 10^3/uL (150-450); RED BLOOD COUNT 2.43 10^6/uL (4.00-5.40); WHITE BLOOD COUNT 11.1 10^3/uL (4.0-10.0)
[2022-03-05 17:17] LABS: HEMOGLOBIN 6.9 g/dl (12.0-15.5)
[2022-03-05] MEDS: RIVAROXABAN 10MG TAB (XARELTO) PO SCH (17:42)
[2022-03-05 17:47] LABS: BLOOD UREA NITROGEN 16 MG/DL (7-18); CALCIUM LEVEL 8.6 MG/DL (8.8-10.2); CARBON DIOXIDE LEVEL 31 MEQ/L (21-32); CHLORIDE LEVEL 103 MEQ/L (98-107); CREATININE FOR GFR 0.42 MG/DL (0.55-1.30); GLOMERULAR FILTRATION RATE > 60.0 (>32); GLUCOSE, FASTING 119 MG/DL (70-100); POTASSIUM SERUM 3.7 MEQ/L (3.5-5.1); SODIUM LEVEL 137 MEQ/L (136-145)
[2022-03-05] MEDS ORDERED: SENNA 8.6 MG TAB (SENOKOT) PO PRN (18:20)
[2022-03-05] MEDS: FERROUS SULFATE 325MG TAB PO SCH (18:53)
[2022-03-05] MEDS: GABAPENTIN 100 MG CAP PO SCH (19:53)
[2022-03-05 20:00] VITALS: BP 131/63
[2022-03-05] MEDS: FAMOTIDINE 20 MG TAB PO SCH (20:06)
[2022-03-05] MEDS: ASCORBIC ACID 500 MG TAB PO SCH (20:06)
[2022-03-05] MEDS: amLODIPine 5 MG TAB PO SCH (20:06)
[2022-03-05 22:29] LABS: RBC, URINE 40-50 /hpf (0-3)
[2022-03-05 22:30] LABS: BACTERIA, URINE LARGE AMOUNT; SQUAMOUS EPITHELIAL CELL URINE SMALL AMOUNT /hpf (SMALL AMT); TRANSITIONAL EPI CELLS, URINE SMALL AMOUNT /hpf
[2022-03-05 22:31] LABS: HYALINE CAST, URINE NONE SEEN /lpf (0-1)
[2022-03-06] MEDS: NORCO, ANEXSIA 5/325MG TABLET (HYDROcodone/ACETAMINOPHEN) PO PRN ×3 (03:40→15:19)
[2022-03-06] MEDS: GABAPENTIN 100 MG CAP PO SCH ×3 (05:09→21:29)
[2022-03-06 06:00] VITALS: BP 145/66
[2022-03-06 07:22] LABS: BASO # 0.1 10^3/uL (0.0-0.2); BASO % 0.5 % (0.0-1.0); EOS # 0.2 10^3/uL (0.0-0.5); EOS % 1.9 % (0.0-3.0); HEMATOCRIT 22.8 % (36.0-47.0); HEMOGLOBIN 7.2 g/dl (12.0-15.5); LYMPH # 2.2 10^3/uL (1.5-5.0); LYMPH % 20.3 % (24.0-44.0); MEAN CORPUSCULAR HEMOGLOBIN 27.9 pg (27.0-33.0); MEAN CORPUSCULAR HGB CONC 31.6 g/dl (32.0-36.5); MEAN CORPUSCULAR VOLUME 88.4 fl (80.0-96.0); MONO % 9.4 % (2.0-8.0); NEUTROPHILS # 7.2 10^3/uL (1.5-8.5); NEUTROPHILS % 67.4 % (36.0-66.0); PLATELET COUNT, AUTOMATED 254 10^3/uL (150-450); RED BLOOD COUNT 2.58 10^6/uL (4.00-5.40); WHITE BLOOD COUNT 10.7 10^3/uL (4.0-10.0)
[2022-03-06] MEDS: DOCUSATE SODIUM 100MG CAPSULE PO SCH (09:12)
[2022-03-06] MEDS: MIRALAX *UNIT DOSE* 17GM PACKET PO SCH (09:12)
[2022-03-06] MEDS: FERROUS SULFATE 325MG TAB PO SCH (09:12)
[2022-03-06] MEDS: ASCORBIC ACID 500 MG TAB PO SCH ×2 (09:12→20:05)
[2022-03-06] MEDS: CitaloPRAM (CeleXA) 20 MG TAB PO SCH (09:12)
[2022-03-06] MEDS: MULTIVITAMINS/MINERALS THERAP 1 TAB PO SCH (09:12)
[2022-03-06] MEDS: FAMOTIDINE 20 MG TAB PO SCH ×2 (09:13→20:05)
[2022-03-06] MEDS: LOSARTAN 25 MG TAB PO SCH (09:13)
[2022-03-06] MEDS: LIDOCAINE 5% (LIDODERM) PATCH TD SCH (10:50)
[2022-03-06 12:48] LABS: HEMATOCRIT 24.6 % (36.0-47.0); HEMOGLOBIN 7.6 g/dl (12.0-15.5)
[2022-03-06 14:00] VITALS: BP 108/51
[2022-03-06] MEDS: LevoFLOXacin 500 MG TABLET PO SCH (16:50)
[2022-03-06] MEDS: RIVAROXABAN 10MG TAB (XARELTO) PO SCH (16:50)
[2022-03-06 18:10] LABS: HEMATOCRIT 23.4 % (36.0-47.0); HEMOGLOBIN 7.3 g/dl (12.0-15.5)
[2022-03-06 20:00] VITALS: BP 124/58
[2022-03-06] MEDS: amLODIPine 5 MG TAB PO SCH (20:05)
[2022-03-06] MEDS: **NOTE PATIENT COMMENT** MISC XX SCH (20:05)
[2022-03-07] VITALS (9 sets, daily range): BP systolic 126–157; BP diastolic 57–78
[2022-03-07] MEDS: NORCO, ANEXSIA 5/325MG TABLET (HYDROcodone/ACETAMINOPHEN) PO PRN ×3 (00:06→19:34)
[2022-03-07 00:41] LABS: HEMATOCRIT 22.5 % (36.0-47.0)
[2022-03-07] MEDS: GABAPENTIN 100 MG CAP PO SCH ×3 (05:30→21:16)
[2022-03-07] MEDS: DOCUSATE SODIUM 100MG CAPSULE PO SCH (07:46)
[2022-03-07] MEDS: FAMOTIDINE 20 MG TAB PO SCH ×2 (07:47→21:16)
[2022-03-07] MEDS: MIRALAX *UNIT DOSE* 17GM PACKET PO SCH (07:47)
[2022-03-07] MEDS: LOSARTAN 25 MG TAB PO SCH (07:47)
[2022-03-07] MEDS: CitaloPRAM (CeleXA) 20 MG TAB PO SCH (07:47)
[2022-03-07] MEDS: FERROUS SULFATE 325MG TAB PO SCH (07:47)
[2022-03-07] MEDS: ASCORBIC ACID 500 MG TAB PO SCH ×2 (07:47→21:16)
[2022-03-07] MEDS: MULTIVITAMINS/MINERALS THERAP 1 TAB PO SCH (07:47)
[2022-03-07] MEDS: LIDOCAINE 5% (LIDODERM) PATCH TD SCH (07:48)
[2022-03-07 10:54] LABS: BASO # 0.1 10^3/uL (0.0-0.2); BASO % 0.4 % (0.0-1.0); EOS # 0.2 10^3/uL (0.0-0.5); EOS % 1.3 % (0.0-3.0); HEMOGLOBIN 7.5 g/dl (12.0-15.5); LYMPH # 1.9 10^3/uL (1.5-5.0); LYMPH % 13.4 % (24.0-44.0); MEAN CORPUSCULAR HEMOGLOBIN 27.8 pg (27.0-33.0); MEAN CORPUSCULAR VOLUME 92.6 fl (80.0-96.0); MONO # 1.1 10^3/uL (0.0-0.8); MONO % 7.9 % (2.0-8.0); NEUTROPHILS # 10.8 10^3/uL (1.5-8.5); NEUTROPHILS % 76.4 % (36.0-66.0); PLATELET COUNT, AUTOMATED 339 10^3/uL (150-450); WHITE BLOOD COUNT 14.1 10^3/uL (4.0-10.0)
[2022-03-07 12:58] LABS: BLOOD UREA NITROGEN 12 MG/DL (7-18); CALCIUM LEVEL 9.2 MG/DL (8.8-10.2); CARBON DIOXIDE LEVEL 28 MEQ/L (21-32); CHLORIDE LEVEL 103 MEQ/L (98-107); CREATININE FOR GFR 0.57 MG/DL (0.55-1.30); FERRITIN 69 NG/ML (8-252); GLOMERULAR FILTRATION RATE > 60.0 (>32); GLUCOSE, FASTING 141 MG/DL (70-100); IRON (FE) 130 UG/DL (50-170); PERCENT SATURATION 43.2 % (13.2-45.0); POTASSIUM SERUM 4.2 MEQ/L (3.5-5.1); SODIUM LEVEL 137 MEQ/L (136-145); TOTAL IRON BINDING CAPACITY 301 UG/DL (250-450)
[2022-03-07 13:53] LABS: VITAMIN B12 LEVEL 383 PG/ML (247-911)
[2022-03-07] MEDS: LevoFLOXacin 500 MG TABLET PO SCH (17:04)
[2022-03-07] MEDS: RIVAROXABAN 10MG TAB (XARELTO) PO SCH (17:04)
[2022-03-07] MEDS: amLODIPine 5 MG TAB PO SCH (21:16)
[2022-03-07] MEDS: **NOTE PATIENT COMMENT** MISC XX SCH (21:17)
[2022-03-08] MEDS: NORCO, ANEXSIA 5/325MG TABLET (HYDROcodone/ACETAMINOPHEN) PO PRN ×2 (01:46→09:03)
[2022-03-08 05:36] VITALS: BP 130/58
[2022-03-08] MEDS: GABAPENTIN 100 MG CAP PO SCH ×4 (06:24→20:54)
[2022-03-08 07:33] LABS: BASO # 0.1 10^3/uL (0.0-0.2); BASO % 0.8 % (0.0-1.0); EOS # 0.3 10^3/uL (0.0-0.5); EOS % 2.5 % (0.0-3.0); HEMATOCRIT 29.7 % (36.0-47.0); HEMOGLOBIN 9.2 g/dl (12.0-15.5); LYMPH # 1.5 10^3/uL (1.5-5.0); LYMPH % 12.1 % (24.0-44.0); MEAN CORPUSCULAR HEMOGLOBIN 27.5 pg (27.0-33.0); MEAN CORPUSCULAR VOLUME 88.7 fl (80.0-96.0); MONO # 1.1 10^3/uL (0.0-0.8); MONO % 9.4 % (2.0-8.0); NEUTROPHILS # 8.9 10^3/uL (1.5-8.5); NEUTROPHILS % 73.9 % (36.0-66.0); PLATELET COUNT, AUTOMATED 343 10^3/uL (150-450); RED BLOOD COUNT 3.35 10^6/uL (4.00-5.40)
[2022-03-08] MEDS: MIRALAX *UNIT DOSE* 17GM PACKET PO SCH (08:57)
[2022-03-08] MEDS: CitaloPRAM (CeleXA) 20 MG TAB PO SCH (08:57)
[2022-03-08] MEDS: FERROUS SULFATE 325MG TAB PO SCH (08:57)
[2022-03-08] MEDS: ASCORBIC ACID 500 MG TAB PO SCH ×2 (08:57→20:44)
[2022-03-08] MEDS: DOCUSATE SODIUM 100MG CAPSULE PO SCH (08:57)
[2022-03-08] MEDS: MULTIVITAMINS/MINERALS THERAP 1 TAB PO SCH (08:57)
[2022-03-08] MEDS: FAMOTIDINE 20 MG TAB PO SCH ×2 (08:57→20:44)
[2022-03-08] MEDS: LIDOCAINE 5% (LIDODERM) PATCH TD SCH (08:58)
[2022-03-08] MEDS: LOSARTAN 25 MG TAB PO SCH (08:58)
[2022-03-08] MEDS: ACETAMINOPHEN 650MG ER TAB (TYLENOL ARTHRITIS) PO SCH ×2 (12:07→20:41)
[2022-03-08 12:08] LABS: FOLATE > 24.0 NG/ML (>5.4)
[2022-03-08 14:00] VITALS: BP 117/49
[2022-03-08] MEDS: LevoFLOXacin 500 MG TABLET PO SCH (17:57)
[2022-03-08] MEDS: RIVAROXABAN 10MG TAB (XARELTO) PO SCH (17:57)
[2022-03-08 20:00] VITALS: BP 128/60
[2022-03-08] MEDS: **NOTE PATIENT COMMENT** MISC XX SCH (20:44)
[2022-03-08] MEDS: amLODIPine 5 MG TAB PO SCH (20:44)
[2022-03-09] MEDS: NORCO, ANEXSIA 5/325MG TABLET (HYDROcodone/ACETAMINOPHEN) PO PRN ×2 (03:55→23:51)
[2022-03-09 06:00] VITALS: BP 157/68
[2022-03-09] MEDS: GABAPENTIN 100 MG CAP PO SCH ×4 (06:05→21:19)
[2022-03-09 07:37] LABS: BASO # 0.1 10^3/uL (0.0-0.2); BASO % 0.7 % (0.0-1.0); EOS # 0.4 10^3/uL (0.0-0.5); EOS % 3.5 % (0.0-3.0); HEMATOCRIT 30.3 % (36.0-47.0); HEMOGLOBIN 9.6 g/dl (12.0-15.5); LYMPH # 1.6 10^3/uL (1.5-5.0); LYMPH % 14.9 % (24.0-44.0); MEAN CORPUSCULAR HEMOGLOBIN 28.4 pg (27.0-33.0); MEAN CORPUSCULAR HGB CONC 31.7 g/dl (32.0-36.5); MEAN CORPUSCULAR VOLUME 89.6 fl (80.0-96.0); MONO # 1.1 10^3/uL (0.0-0.8); MONO % 10.2 % (2.0-8.0); NEUTROPHILS # 7.4 10^3/uL (1.5-8.5); NEUTROPHILS % 69.8 % (36.0-66.0); PLATELET COUNT, AUTOMATED 421 10^3/uL (150-450); RED BLOOD COUNT 3.38 10^6/uL (4.00-5.40); WHITE BLOOD COUNT 10.6 10^3/uL (4.0-10.0)
[2022-03-09 08:07] LABS: BLOOD UREA NITROGEN 8 MG/DL (7-18); CALCIUM LEVEL 9.3 MG/DL (8.8-10.2); CARBON DIOXIDE LEVEL 28 MEQ/L (21-32); CHLORIDE LEVEL 108 MEQ/L (98-107); CREATININE FOR GFR 0.49 MG/DL (0.55-1.30); GLOMERULAR FILTRATION RATE > 60.0 (>32); GLUCOSE, FASTING 114 MG/DL (70-100); SODIUM LEVEL 141 MEQ/L (136-145)
[2022-03-09] MEDS: MIRALAX *UNIT DOSE* 17GM PACKET PO SCH (08:18)
[2022-03-09] MEDS: ACETAMINOPHEN 650MG ER TAB (TYLENOL ARTHRITIS) PO SCH ×2 (08:18→21:18)
[2022-03-09] MEDS: FAMOTIDINE 20 MG TAB PO SCH ×2 (08:18→21:19)
[2022-03-09] MEDS: LIDOCAINE 5% (LIDODERM) PATCH TD SCH (08:18)
[2022-03-09] MEDS: FERROUS SULFATE 325MG TAB PO SCH (08:19)
[2022-03-09] MEDS: CitaloPRAM (CeleXA) 20 MG TAB PO SCH (08:19)
[2022-03-09] MEDS: MULTIVITAMINS/MINERALS THERAP 1 TAB PO SCH (08:19)
[2022-03-09] MEDS: ASCORBIC ACID 500 MG TAB PO SCH ×2 (08:19→21:19)
[2022-03-09] MEDS: DOCUSATE SODIUM 100MG CAPSULE PO SCH (08:19)
[2022-03-09] MEDS: LOSARTAN 25 MG TAB PO SCH (08:19)
[2022-03-09] MEDS ORDERED: traZODone 25MG PER 1/2 TABLET PO PRN (09:10)
[2022-03-09 14:18] VITALS: BP 143/63
[2022-03-09] MEDS: LevoFLOXacin 500 MG TABLET PO SCH (17:46)
[2022-03-09] MEDS: RIVAROXABAN 10MG TAB (XARELTO) PO SCH (17:46)
[2022-03-09 20:04] VITALS: BP 139/92
[2022-03-09] MEDS: amLODIPine 5 MG TAB PO SCH (21:19)
[2022-03-09] MEDS: **NOTE PATIENT COMMENT** MISC XX SCH (21:19)
[2022-03-10] MEDS: GABAPENTIN 100 MG CAP PO SCH ×4 (05:48→20:27)
[2022-03-10 05:50] VITALS: BP 140/72
[2022-03-10] MEDS: MIRALAX *UNIT DOSE* 17GM PACKET PO SCH (09:00)
[2022-03-10] MEDS: ACETAMINOPHEN 650MG ER TAB (TYLENOL ARTHRITIS) PO SCH ×2 (09:00→20:25)
[2022-03-10] MEDS: CitaloPRAM (CeleXA) 20 MG TAB PO SCH (09:01)
[2022-03-10] MEDS: ASCORBIC ACID 500 MG TAB PO SCH ×2 (09:01→20:24)
[2022-03-10] MEDS: FAMOTIDINE 20 MG TAB PO SCH ×2 (09:01→20:25)
[2022-03-10] MEDS: LOSARTAN 25 MG TAB PO SCH (09:01)
[2022-03-10] MEDS: FERROUS SULFATE 325MG TAB PO SCH (09:01)
[2022-03-10] MEDS: MULTIVITAMINS/MINERALS THERAP 1 TAB PO SCH (09:01)
[2022-03-10] MEDS: LIDOCAINE 5% (LIDODERM) PATCH TD SCH (09:01)
[2022-03-10] MEDS: DOCUSATE SODIUM 100MG CAPSULE PO SCH (09:01)
[2022-03-10] MEDS: NORCO, ANEXSIA 5/325MG TABLET (HYDROcodone/ACETAMINOPHEN) PO PRN ×3 (10:33→22:52)
[2022-03-10 14:18] VITALS: BP 146/67
[2022-03-10] MEDS: LevoFLOXacin 500 MG TABLET PO SCH (17:02)
[2022-03-10] MEDS: RIVAROXABAN 10MG TAB (XARELTO) PO SCH (17:02)
[2022-03-10 20:00] VITALS: BP 129/62
[2022-03-10] MEDS: **NOTE PATIENT COMMENT** MISC XX SCH (20:25)
[2022-03-10] MEDS: amLODIPine 5 MG TAB PO SCH (20:25)
[2022-03-11] MEDS: GABAPENTIN 100 MG CAP PO SCH ×4 (05:42→20:14)
[2022-03-11] MEDS: NORCO, ANEXSIA 5/325MG TABLET (HYDROcodone/ACETAMINOPHEN) PO PRN ×4 (05:42→23:01)
[2022-03-11 06:00] VITALS: BP 160/70
[2022-03-11] MEDS: MIRALAX *UNIT DOSE* 17GM PACKET PO SCH (07:06)
[2022-03-11] MEDS: MULTIVITAMINS/MINERALS THERAP 1 TAB PO SCH (07:12)
[2022-03-11] MEDS: ACETAMINOPHEN 650MG ER TAB (TYLENOL ARTHRITIS) PO SCH ×2 (07:12→20:10)
[2022-03-11] MEDS: LIDOCAINE 5% (LIDODERM) PATCH TD SCH (07:12)
[2022-03-11] MEDS: ASCORBIC ACID 500 MG TAB PO SCH ×2 (07:13→20:10)
[2022-03-11] MEDS: FAMOTIDINE 20 MG TAB PO SCH ×2 (07:13→20:10)
[2022-03-11] MEDS: DOCUSATE SODIUM 100MG CAPSULE PO SCH (07:13)
[2022-03-11] MEDS: LOSARTAN 25 MG TAB PO SCH (07:13)
[2022-03-11] MEDS: FERROUS SULFATE 325MG TAB PO SCH (07:13)
[2022-03-11] MEDS: CitaloPRAM (CeleXA) 20 MG TAB PO SCH (07:13)
[2022-03-11 14:00] VITALS: BP 150/66
[2022-03-11] MEDS: LevoFLOXacin 500 MG TABLET PO SCH (17:10)
[2022-03-11] MEDS: RIVAROXABAN 10MG TAB (XARELTO) PO SCH (17:10)
[2022-03-11 20:00] VITALS: BP 141/64
[2022-03-11] MEDS: **NOTE PATIENT COMMENT** MISC XX SCH (20:10)
[2022-03-11] MEDS: amLODIPine 5 MG TAB PO SCH (20:10)
[2022-03-12] MEDS: GABAPENTIN 100 MG CAP PO SCH ×4 (04:54→21:49)
[2022-03-12] MEDS: NORCO, ANEXSIA 5/325MG TABLET (HYDROcodone/ACETAMINOPHEN) PO PRN ×4 (04:54→23:52)
[2022-03-12 06:00] VITALS: BP 156/64
[2022-03-12] MEDS: ACETAMINOPHEN 650MG ER TAB (TYLENOL ARTHRITIS) PO SCH ×2 (08:54→21:50)
[2022-03-12] MEDS: LOSARTAN 25 MG TAB PO SCH (08:55)
[2022-03-12] MEDS: DOCUSATE SODIUM 100MG CAPSULE PO SCH (08:55)
[2022-03-12] MEDS: FERROUS SULFATE 325MG TAB PO SCH (08:55)
[2022-03-12] MEDS: ASCORBIC ACID 500 MG TAB PO SCH ×2 (08:55→21:50)
[2022-03-12] MEDS: CitaloPRAM (CeleXA) 20 MG TAB PO SCH (08:55)
[2022-03-12] MEDS: MULTIVITAMINS/MINERALS THERAP 1 TAB PO SCH (08:55)
[2022-03-12] MEDS: FAMOTIDINE 20 MG TAB PO SCH ×2 (08:55→21:50)
[2022-03-12] MEDS: LIDOCAINE 5% (LIDODERM) PATCH TD SCH (08:55)
[2022-03-12] MEDS: MIRALAX *UNIT DOSE* 17GM PACKET PO SCH (08:59)
[2022-03-12 14:00] VITALS: BP 142/62
[2022-03-12] MEDS: LevoFLOXacin 500 MG TABLET PO SCH (17:11)
[2022-03-12] MEDS: RIVAROXABAN 10MG TAB (XARELTO) PO SCH (17:11)
[2022-03-12 19:27] VITALS: BP 140/68
[2022-03-12] MEDS: **NOTE PATIENT COMMENT** MISC XX SCH (21:00)
[2022-03-12] MEDS: amLODIPine 5 MG TAB PO SCH (21:50)
[2022-03-13 05:11] VITALS: BP 140/70
[2022-03-13] MEDS: GABAPENTIN 100 MG CAP PO SCH ×4 (05:24→21:54)
[2022-03-13] MEDS: NORCO, ANEXSIA 5/325MG TABLET (HYDROcodone/ACETAMINOPHEN) PO PRN ×3 (06:49→21:53)
[2022-03-13 06:57] LABS: BASO # 0.1 10^3/uL (0.0-0.2); BASO % 0.7 % (0.0-1.0); EOS # 0.2 10^3/uL (0.0-0.5); EOS % 2.1 % (0.0-3.0); HEMATOCRIT 32.9 % (36.0-47.0); LYMPH # 1.5 10^3/uL (1.5-5.0); LYMPH % 14.8 % (24.0-44.0); MEAN CORPUSCULAR HGB CONC 30.4 g/dl (32.0-36.5); MEAN CORPUSCULAR VOLUME 92.2 fl (80.0-96.0); MONO # 0.9 10^3/uL (0.0-0.8); MONO % 9.1 % (2.0-8.0); NEUTROPHILS # 7.3 10^3/uL (1.5-8.5); NEUTROPHILS % 72.1 % (36.0-66.0); PLATELET COUNT, AUTOMATED 481 10^3/uL (150-450); RED BLOOD COUNT 3.57 10^6/uL (4.00-5.40); WHITE BLOOD COUNT 10.2 10^3/uL (4.0-10.0)
[2022-03-13 07:38] LABS: ALT/SGPT 14 U/L (12-78); BILIRUBIN,TOTAL 0.5 MG/DL (0.2-1.0); BLOOD UREA NITROGEN 8 MG/DL (7-18); CALCIUM LEVEL 9.2 MG/DL (8.8-10.2); CARBON DIOXIDE LEVEL 30 MEQ/L (21-32); CHLORIDE LEVEL 107 MEQ/L (98-107); CREATININE FOR GFR 0.44 MG/DL (0.55-1.30); FERRITIN 137 NG/ML (8-252); GLOMERULAR FILTRATION RATE > 60.0 (>32); GLUCOSE, FASTING 110 MG/DL (70-100); IRON (FE) 36 UG/DL (50-170); PERCENT SATURATION 12.5 % (13.2-45.0); POTASSIUM SERUM 4.2 MEQ/L (3.5-5.1); SODIUM LEVEL 141 MEQ/L (136-145); TOTAL IRON BINDING CAPACITY 287 UG/DL (250-450); TOTAL PROTEIN 6.3 GM/DL (6.4-8.2)
[2022-03-13] MEDS: DOCUSATE SODIUM 100MG CAPSULE PO SCH (10:04)
[2022-03-13] MEDS: LOSARTAN 25 MG TAB PO SCH (10:04)
[2022-03-13] MEDS: MIRALAX *UNIT DOSE* 17GM PACKET PO SCH (10:04)
[2022-03-13] MEDS: CitaloPRAM (CeleXA) 20 MG TAB PO SCH (10:04)
[2022-03-13] MEDS: ASCORBIC ACID 500 MG TAB PO SCH ×2 (10:04→21:53)
[2022-03-13] MEDS: FAMOTIDINE 20 MG TAB PO SCH ×2 (10:04→21:53)
[2022-03-13] MEDS: MULTIVITAMINS/MINERALS THERAP 1 TAB PO SCH (10:04)
[2022-03-13] MEDS: FERROUS SULFATE 325MG TAB PO SCH (10:04)
[2022-03-13] MEDS: LIDOCAINE 5% (LIDODERM) PATCH TD SCH (10:05)
[2022-03-13] MEDS: ACETAMINOPHEN 650MG ER TAB (TYLENOL ARTHRITIS) PO SCH ×2 (10:05→21:00)
[2022-03-13 14:00] VITALS: BP 154/66
[2022-03-13] MEDS: RIVAROXABAN 10MG TAB (XARELTO) PO SCH (17:17)
[2022-03-13 20:00] VITALS: BP 163/70
[2022-03-13] MEDS: **NOTE PATIENT COMMENT** MISC XX SCH (21:00)
[2022-03-13] MEDS: amLODIPine 5 MG TAB PO SCH (21:54)
[2022-03-14] MEDS: GABAPENTIN 100 MG CAP PO SCH ×4 (05:16→20:56)
[2022-03-14 05:40] VITALS: BP 140/74
[2022-03-14] MEDS: MULTIVITAMINS/MINERALS THERAP 1 TAB PO SCH (08:57)
[2022-03-14] MEDS: CitaloPRAM (CeleXA) 20 MG TAB PO SCH (08:57)
[2022-03-14] MEDS: FAMOTIDINE 20 MG TAB PO SCH ×2 (08:57→20:53)
[2022-03-14] MEDS: ASCORBIC ACID 500 MG TAB PO SCH ×2 (08:57→20:52)
[2022-03-14] MEDS: FERROUS SULFATE 325MG TAB PO SCH ×2 (08:57→17:37)
[2022-03-14] MEDS: MIRALAX *UNIT DOSE* 17GM PACKET PO SCH (08:58)
[2022-03-14] MEDS: LOSARTAN 25 MG TAB PO SCH (08:58)
[2022-03-14] MEDS: DOCUSATE SODIUM 100MG CAPSULE PO SCH (08:58)
[2022-03-14] MEDS: ACETAMINOPHEN 650MG ER TAB (TYLENOL ARTHRITIS) PO SCH ×2 (08:58→20:53)
[2022-03-14] MEDS: LIDOCAINE 5% (LIDODERM) PATCH TD SCH (08:59)
[2022-03-14] MEDS: NORCO, ANEXSIA 5/325MG TABLET (HYDROcodone/ACETAMINOPHEN) PO PRN ×3 (11:23→23:31)
[2022-03-14 14:00] VITALS: BP 128/58
[2022-03-14] MEDS: RIVAROXABAN 10MG TAB (XARELTO) PO SCH (17:37)
[2022-03-14 20:00] VITALS: BP 137/60
[2022-03-14] MEDS: amLODIPine 5 MG TAB PO SCH (20:53)
[2022-03-14] MEDS: **NOTE PATIENT COMMENT** MISC XX SCH (20:53)
[2022-03-15] MEDS: GABAPENTIN 100 MG CAP PO SCH ×4 (05:29→20:30)
[2022-03-15] MEDS: NORCO, ANEXSIA 5/325MG TABLET (HYDROcodone/ACETAMINOPHEN) PO PRN ×3 (05:31→19:42)
[2022-03-15 06:00] VITALS: BP 139/67
[2022-03-15] MEDS: FERROUS SULFATE 325MG TAB PO SCH ×2 (08:05→17:08)
[2022-03-15] MEDS: MULTIVITAMINS/MINERALS THERAP 1 TAB PO SCH (08:05)
[2022-03-15] MEDS: ASCORBIC ACID 500 MG TAB PO SCH ×2 (08:05→20:31)
[2022-03-15] MEDS: LOSARTAN 25 MG TAB PO SCH (08:05)
[2022-03-15] MEDS: FAMOTIDINE 20 MG TAB PO SCH ×2 (08:05→20:31)
[2022-03-15] MEDS: CitaloPRAM (CeleXA) 20 MG TAB PO SCH (08:05)
[2022-03-15] MEDS: ACETAMINOPHEN 650MG ER TAB (TYLENOL ARTHRITIS) PO SCH ×2 (08:06→20:31)
[2022-03-15] MEDS: LIDOCAINE 5% (LIDODERM) PATCH TD SCH (08:07)
[2022-03-15] MEDS: MIRALAX *UNIT DOSE* 17GM PACKET PO SCH (08:08)
[2022-03-15] MEDS: DOCUSATE SODIUM 100MG CAPSULE PO SCH (08:08)
[2022-03-15 14:00] VITALS: BP 130/60
[2022-03-15] MEDS ORDERED: ACE65ERTAB PO (15:17)
[2022-03-15] MEDS ORDERED: SENN18TA PO (15:17)
[2022-03-15] MEDS ORDERED: FERR1TAB8 PO (15:17)
[2022-03-15] MEDS ORDERED: GABA-1171 PO ×2 (15:17)
[2022-03-15] MEDS ORDERED: XARE10TA PO (15:17)
[2022-03-15] MEDS ORDERED: ASCO50TA PO (15:17)
[2022-03-15] MEDS: RIVAROXABAN 10MG TAB (XARELTO) PO SCH (17:08)
[2022-03-15 20:00] VITALS: BP 133/61
[2022-03-15] MEDS: amLODIPine 5 MG TAB PO SCH (20:31)
[2022-03-15] MEDS: **NOTE PATIENT COMMENT** MISC XX SCH (20:32)
[2022-03-16] MEDS: GABAPENTIN 100 MG CAP PO SCH (05:08)
[2022-03-16] MEDS: NORCO, ANEXSIA 5/325MG TABLET (HYDROcodone/ACETAMINOPHEN) PO PRN (05:09)
[2022-03-16] MEDS ORDERED: amLODIPine 5 MG TAB PO ONE ×2 (05:55)
[2022-03-16 06:00] VITALS: BP 174/90
[2022-03-16 06:50] VITALS: BP 150/72
[2022-03-16] MEDS: LIDOCAINE 5% (LIDODERM) PATCH TD SCH (09:00)
[2022-03-16] MEDS: MULTIVITAMINS/MINERALS THERAP 1 TAB PO SCH (09:03)
[2022-03-16] MEDS: ACETAMINOPHEN 650MG ER TAB (TYLENOL ARTHRITIS) PO SCH (09:03)
[2022-03-16] MEDS: ASCORBIC ACID 500 MG TAB PO SCH (09:03)
[2022-03-16] MEDS: FERROUS SULFATE 325MG TAB PO SCH (09:03)
[2022-03-16] MEDS: FAMOTIDINE 20 MG TAB PO SCH (09:03)
[2022-03-16] MEDS: DOCUSATE SODIUM 100MG CAPSULE PO SCH (09:03)
[2022-03-16 09:04] VITALS: BP 150/72
[2022-03-16] MEDS: MIRALAX *UNIT DOSE* 17GM PACKET PO SCH (09:04)
[2022-03-16] MEDS: CitaloPRAM (CeleXA) 20 MG TAB PO SCH (09:04)
[2022-03-16] MEDS: LOSARTAN 25 MG TAB PO SCH (09:04)
[2022-03-17] MEDS ORDERED: ASPIRIN 81 MG CHEW TABLET PO SCH (09:00)
== END 2022-03-16 11:15 | disposition home or self-care (01) | DRG 560 ==
LOC: UNDOADMIN 01:50 → M PM&R 01:50
PROVIDERS: ADMIT Physical Medicine & Rehabilitation; ATTEND Physical Medicine & Rehabilitation
PROC: 30233N1 Transfusion of Nonautologous Red Blood Cells into Peripheral Vein, Percutaneous Approach (ICD-10-PCS; principal; 2022-03-06)
DX: S72.142D Displaced intertrochanteric fracture of left femur, subsequent encounter for closed fracture with routine healing (principal); N17.9 Acute kidney failure, unspecified; N39.0 Urinary tract infection, site not specified; E11.42 Type 2 diabetes mellitus with diabetic polyneuropathy; I10 Essential (primary) hypertension; M19.90 Unspecified osteoarthritis, unspecified site; K64.9 Unspecified hemorrhoids; R01.1 Cardiac murmur, unspecified; D64.9 Anemia, unspecified; E83.52 Hypercalcemia; R39.11 Hesitancy of micturition; G47.00 Insomnia, unspecified; B96.1 Klebsiella pneumoniae [K. pneumoniae] as the cause of diseases classified elsewhere; F39 Unspecified mood [affective] disorder; Z66 Do not resuscitate; R33.9 Retention of urine, unspecified; K59.00 Constipation, unspecified; K21.9 Gastro-esophageal reflux disease without esophagitis; Z74.1 Need for assistance with personal care; Z74.09 Other reduced mobility; Z90.49 Acquired absence of other specified parts of digestive tract; Z79.01 Long term (current) use of anticoagulants; Z79.82 Long term (current) use of aspirin; Z79.899 Other long term (current) drug therapy; Z88.8 Allergy status to other drugs, medicaments and biological substances; Z88.1 Allergy status to other antibiotic agents; Z88.2 Allergy status to sulfonamides

== ENCOUNTER → 2022-03-27 | Outpatient (CLI) | payer MEDICARE, OTHER ==
[~2022-03-27] MED LIST changes: +ACE65ERTAB PO; +ASCO50TA PO; +FERR1TAB8 PO; +GABA-1171 PO; +SENN18TA PO; +XARE10TA PO
== END ==
LOC: M SOG 08:46
PROVIDERS: ATTEND Orthopaedic Surgery
DX: M25.552 Pain in left hip (principal); Z47.89 Encounter for other orthopedic aftercare

== ENCOUNTER → 2022-03-29 | Outpatient (REF) | payer MEDICARE, OTHER ==
[2022-03-29 17:53] LABS: APPEARANCE, URINE MANUAL HAZY (CLEAR); BILIRUBIN, URINE MANUAL NEGATIVE (NEGATIVE); BLOOD URINE MANUAL POSITIVE (NEGATIVE); COLOR, URINE MANUAL YELLOW (YELLOW); GLUCOSE, URINE (UA) MANUAL NEGATIVE (NEGATIVE); KETONE, URINE MANUAL NEGATIVE (NEGATIVE); LEUKOCYTE ESTERASE, URINE MAN POSITIVE (NEGATIVE); NITRITE, URINE MANUAL NEGATIVE (NEGATIVE); PROTEIN, URINE MANUAL NEGATIVE (NEGATIVE); UROBILINOGEN, URINE MANUAL NORMAL (NORMAL)
[2022-03-29 18:14] LABS: BACTERIA, URINE LARGE AMOUNT; HYALINE CAST, URINE NONE SEEN /lpf (0-1); SQUAMOUS EPITHELIAL CELL URINE MOD AMOUNT /hpf (SMALL AMT); WBC, URINE 15-20 /hpf (0-3)
== END ==
LOC: M LAB REF 16:57
PROVIDERS: ATTEND Nurse Practitioner Adult Health
DX: N39.0 Urinary tract infection, site not specified (principal)

== ENCOUNTER → 2022-04-25 | Outpatient (CLI) | payer MEDICARE, OTHER | LOC: M SOG 07:59 | PROVIDERS: ATTEND Orthopaedic Surgery | DX: S72.142D Displaced intertrochanteric fracture of left femur, subsequent encounter for closed fracture with routine healing (principal); W18.30XD Fall on same level, unspecified, subsequent encounter ==

== ENCOUNTER → 2022-04-27 | Outpatient (REF) | payer MEDICARE, OTHER ==
[2022-04-27 12:22] LABS: APPEARANCE, URINE MANUAL HAZY (CLEAR); COLOR, URINE MANUAL LT YELLOW (YELLOW)
[2022-04-27 12:24] LABS: BILIRUBIN, URINE MANUAL NEGATIVE (NEGATIVE); BLOOD URINE MANUAL NEGATIVE (NEGATIVE); GLUCOSE, URINE (UA) MANUAL NEGATIVE (NEGATIVE); KETONE, URINE MANUAL NEGATIVE (NEGATIVE); LEUKOCYTE ESTERASE, URINE MAN POSITIVE (NEGATIVE); NITRITE, URINE MANUAL NEGATIVE (NEGATIVE); PROTEIN, URINE MANUAL NEGATIVE (NEGATIVE); UROBILINOGEN, URINE MANUAL NORMAL (NORMAL)
[2022-04-27 13:01] LABS: SQUAMOUS EPITHELIAL CELL URINE MOD AMOUNT /hpf (SMALL AMT)
[2022-04-27 13:02] LABS: BACTERIA, URINE LARGE AMOUNT; HYALINE CAST, URINE NONE SEEN /lpf (0-1)
== END ==
LOC: M SMT 10:26
PROVIDERS: ATTEND Nurse Practitioner Women's Health
DX: N39.0 Urinary tract infection, site not specified (principal)

== ENCOUNTER → 2022-05-01 | Outpatient (CLI) | payer MEDICARE, OTHER ==
[2022-05-01 08:55] LABS: BASO # 0.1 10^3/uL (0.0-0.2); BASO % 1.2 % (0.0-1.0); EOS # 0.1 10^3/uL (0.0-0.5); HEMATOCRIT 41.1 % (36.0-47.0); LYMPH # 1.9 10^3/uL (1.5-5.0); LYMPH % 29.3 % (24.0-44.0); MEAN CORPUSCULAR HEMOGLOBIN 28.4 pg (27.0-33.0); MEAN CORPUSCULAR HGB CONC 31.6 g/dl (32.0-36.5); MEAN CORPUSCULAR VOLUME 89.7 fl (80.0-96.0); MONO # 0.6 10^3/uL (0.0-0.8); MONO % 9.2 % (2.0-8.0); NEUTROPHILS # 3.8 10^3/uL (1.5-8.5); PLATELET COUNT, AUTOMATED 272 10^3/uL (150-450); RED BLOOD COUNT 4.58 10^6/uL (4.00-5.40); WHITE BLOOD COUNT 6.5 10^3/uL (4.0-10.0)
[2022-05-01 09:50] LABS: ALBUMIN 3.8 GM/DL (3.2-5.2); ALT/SGPT 19 U/L (12-78); BILIRUBIN,TOTAL 0.3 MG/DL (0.2-1.0); BLOOD UREA NITROGEN 10 MG/DL (7-18); CALCIUM LEVEL 9.9 MG/DL (8.8-10.2); CARBON DIOXIDE LEVEL 28 MEQ/L (21-32); CHLORIDE LEVEL 103 MEQ/L (98-107); CHOLESTEROL LEVEL 233 MG/DL (<200); CHOLESTEROL RISK RATIO 2.043 (<5); CREATININE FOR GFR 0.55 MG/DL (0.55-1.30); FREE T4 0.92 NG/DL (0.76-1.46); GLOMERULAR FILTRATION RATE > 60.0 (>32); GLUCOSE, FASTING 110 MG/DL (70-100); HDL CHOLESTEROL 114 MG/DL (>40); LDL CHOLESTEROL 103 MG/DL (<100); NON-HDL-C 119 MG/DL; POTASSIUM SERUM 3.9 MEQ/L (3.5-5.1); SODIUM LEVEL 138 MEQ/L (136-145); TOTAL PROTEIN 7.5 GM/DL (6.4-8.2); TRIGLYCERIDES LEVEL 78 MG/DL (<150)
[2022-05-01 09:52] LABS: CREATININE, URINE 45.9 MG/DL; MALB URINE SIEMENS 35.3 MG/L; MAU/CREAT RATIO 76.9 MCG/MG (0.0-30.0)
[2022-05-01 09:55] LABS: HEMOGLOBIN A1c 5.5 %
== END ==
LOC: M LAB 08:19
PROVIDERS: ATTEND Nurse Practitioner Adult Health
DX: E11.42 Type 2 diabetes mellitus with diabetic polyneuropathy (principal)

== ENCOUNTER → 2022-05-21 | Outpatient (REF) | payer MEDICARE, OTHER ==
[2022-05-21 14:45] LABS: APPEARANCE, URINE MANUAL HAZY (CLEAR); COLOR, URINE MANUAL YELLOW (YELLOW)
[2022-05-21 14:46] LABS: BILIRUBIN, URINE MANUAL NEGATIVE (NEGATIVE); GLUCOSE, URINE (UA) MANUAL NEGATIVE (NEGATIVE); KETONE, URINE MANUAL NEGATIVE (NEGATIVE); LEUKOCYTE ESTERASE, URINE MAN POSITIVE (NEGATIVE); NITRITE, URINE MANUAL POSITIVE (NEGATIVE); PROTEIN, URINE MANUAL TRACE mg/dL (NEGATIVE); SPECIFIC GRAVITY,URINE MANUAL 1.015 (1.002-1.035); UROBILINOGEN, URINE MANUAL NORMAL (NORMAL)
[2022-05-21 14:47] LABS: BLOOD URINE MANUAL TRACE (NEGATIVE)
[2022-05-21 15:13] LABS: BACTERIA, URINE LARGE AMOUNT; HYALINE CAST, URINE NONE SEEN /lpf (0-1); SQUAMOUS EPITHELIAL CELL URINE SMALL AMOUNT /hpf (SMALL AMT); WBC, URINE TNTC /hpf (0-3)
== END ==
LOC: M SMT 13:05
PROVIDERS: ATTEND Urology
DX: N39.0 Urinary tract infection, site not specified (principal)